=== PATIENT | male | born 1965 | race Caucasian/White ===

== ENCOUNTER 2024-04-21 16:38 | Emergency (ER) | payer BC, SELFPAY ==
[2024-04-21 16:40] VITALS: BP 129/67
--- NOTE | 2024-04-21 17:51 | ED.GENMED ---
History of Present Illness
<RUPERTO Ramírez - Last Filed: 04/22/24 18:36>
General
Chief Complaint: Suicidal Ideation
Source: patient and family
Exam Limitations: none and other
Time Seen by Provider: 04/21/24 17:31
Nursing documentation reviewed up to this point in time: agreed with
History of Present Illness
History of Present Illness:
58 yr old male sent by [facility] for placement for suidical ideation.
Patient presents awake alert brother at bedside. Patient has a history of anxiety depression and is in a partial hospitalization program with [facility]. He reports he missed 2 days of therapy and he feels bad that he did because he does refer
to therapy helps when he is there. He was previously hospitalized at [place] in February until March.
He was [facility] because he was suicidal this morning and as per crisis here in the ER he was sent for inpatient placement for depression and suicidal ideation. He does report that he did think of a plan and tells me he' would
use a knife to stab my stomach.'
Pt is cooperative.
Review of Systems
<RUPERTO Ramírez - Last Filed: 04/22/24 18:36>
Review of Systems
Allergies reviewed?: Yes
All Other Systems: ROS reviewed and negative except as documented in HPI and ROS
Constitutional: Reports no symptoms
Respiratory: Reports no symptoms
Cardiac: Reports no symptoms
ABD/GI: Reports no symptoms
: Reports no symptoms
Musculoskeletal: Reports no symptoms
Skin: Reports no symptoms
Neurological: Reports no symptoms
Psychiatric: Reports suicidal (admits to feeling suicidal this am ,denies now )
Phy Exam
<RUPERTO Ramírez - Last Filed: 04/22/24 18:36>
General Physical Exam
General Presentation: no apparent distress
General age: appears stated age
General Skin: warm and dry
General Habitus: normal
General Mental: alert
General Hydration: appears well hydrated
Neurological Exam
Neurological Exam: alert and oriented x3
Musculoskeletal Exam
Musculoskeletal Exam: full ROM
Skin Exam
Skin Exam: normal color and warm/dry
Psychiatric Exam
Psychiatric Exam: other (flat affect )
Course
<RUPERTO Ramírez - Last Filed: 04/22/24 18:36>
Orders/Labs/Results
Orders:
Orders
04/21/24 16:45
1:1 Observation - Suicide/ Violent Behavior As Directed
Crisis Consult Urgent
Reason for Consult: +SI
04/21/24 18:38
Acetaminophen Urgent
Alcohol Urgent
COVID-19 Antigen Urgent
Source: Nasal Swab
Complete Blood Count/With Diff Urgent
Comprehensive Metabolic Panel Urgent
Salicylate Urgent
Urine Drug Abuse Screen Urgent
Date Specimen was Collected: 04/21/24
Time Specimen was Collected: 18:32
Abnormal Lab Results
04/21/24
18:38
RBC 4.26 L 10^6/uL
(4.70-6.10)
Hgb 12.7 L g/dL
(13.0-18.0)
Hct 34.9 L %
(39.0-52.0)
Abs Immat Gran (auto) 0.1 H 10^3/uL
(0-0.05)
Immature Gran % 0.7 H %
(0-0.5)
BUN 30 H mg/dl
(9-20)
Glucose 124 H mg/dl
(70-99)
ALT 88 H U/L
(0-50)
Salicylates < 1.0 L mg/dl
(2.0-20.0)
Acetaminophen < 10 L ug/ml
(10-30)
04/21/24 18:38
04/21/24 18:38
Vital Signs
Initial and Last Documented VS:
Initial Vital Signs
Temp Pulse Resp BP Pulse Ox
98.3 F 79 16 129/67 98
04/21/24 16:40 04/21/24 16:40 04/21/24 16:40 04/21/24 16:40 04/21/24 16:40
Last Documented Vital Signs
Temp Pulse Resp BP Pulse Ox
99.0 F 78 16 126/74 98
04/21/24 18:28 04/22/24 07:21 04/22/24 07:21 04/22/24 07:21 04/22/24 07:21
<Ana Rosa Chen NP - Last Filed: 04/21/24 23:34>
Orders/Labs/Results
Orders:
Orders
04/21/24 16:45
1:1 Observation - Suicide/ Violent Behavior As Directed
Crisis Consult Urgent
Reason for Consult: +SI
04/21/24 18:38
Acetaminophen Urgent
Alcohol Urgent
COVID-19 Antigen Urgent
Source: Nasal Swab
Complete Blood Count/With Diff Urgent
Comprehensive Metabolic Panel Urgent
Salicylate Urgent
Urine Drug Abuse Screen Urgent
Date Specimen was Collected: 04/21/24
Time Specimen was Collected: 18:32
Abnormal Lab Results
04/21/24
18:38
RBC 4.26 L 10^6/uL
(4.70-6.10)
Hgb 12.7 L g/dL
(13.0-18.0)
Hct 34.9 L %
(39.0-52.0)
Abs Immat Gran (auto) 0.1 H 10^3/uL
(0-0.05)
Immature Gran % 0.7 H %
(0-0.5)
BUN 30 H mg/dl
(9-20)
Glucose 124 H mg/dl
(70-99)
ALT 88 H U/L
(0-50)
Salicylates < 1.0 L mg/dl
(2.0-20.0)
Acetaminophen < 10 L ug/ml
(10-30)
04/21/24 18:38
04/21/24 18:38
Vital Signs
Initial and Last Documented VS:
Initial Vital Signs
Temp Pulse Resp BP Pulse Ox
98.3 F 79 16 129/67 98
04/21/24 16:40 04/21/24 16:40 04/21/24 16:40 04/21/24 16:40 04/21/24 16:40
Last Documented Vital Signs
Temp Pulse Resp BP Pulse Ox
99.0 F 78 16 126/74 98
04/21/24 18:28 04/22/24 07:21 04/22/24 07:21 04/22/24 07:21 04/22/24 07:21
<RUPERTO Ramírez - Last Filed: 04/22/24 18:36>
MDM/Problems Addressed
MDM/Problems Addressed:
As documented patient is a 58-year-old male sent by [employer] for evaluation of suicidal ideation. Patient presents awake alert he does admit to feeling suicidal this morning he does not feel suicidal at this moment. He does however
express that he had a plan. Crisis aware telepsych to see patient. Patient cooperative and voluntary at this time.
<RUPERTO Ramírez - Last Filed: 04/22/24 18:36>
*Critical Care Note
Total Time (30-74mins, 75-104mins- exclusive of procedures): Not Applicable
<Ana Rosa Chen NP - Last Filed: 04/21/24 23:34>
Update Note
Update Note:
Patient evaluated by crisis and he is agreeable to inpatient treatment. Placement secured at [place]. Awaiting transportation. Clay Stanford is medically stable for inpatient psychiatric care.
ED Attending Note
<RUPERTO Ramírez - Last Filed: 04/22/24 18:36>
-
Portions of this chart may have been created with voice recognition software.� Occasional wrong word or��sound alike� substitutions may have occurred due to the inherent limitations of voice recognition software.
Discharge Plan
Departure
Patient Disposition: Psych Facility
Date of Disposition: 04/21/24
Time of Disposition: 23:32
Condition: Fair
Covid-19: Not Applicable
Discharge Problem:
Medical clearance for psychiatric admission
Instructions: Depression, Adult (DC), Suicide Prevention
Prescriptions:
No Action
trazodone 50 mg Tablet
50 mg PO HS PRN (Reason: sleep)
valacyclovir 1 gram Tablet
1,000 mg PO BID PRN (Reason: COLD SORE)
Patient Comments:
TAKE 2 PILLS TWICE DAILY FOR 5 DAYS NEEDED FOR COLD SORE
amlodipine 5 mg Tablet
5 mg PO DAILY
metformin 1,000 mg Tablet
1,000 mg PO BID
lisinopril 10 mg Tablet
10 mg PO DAILY
gabapentin 300 mg Capsule
300 mg PO TID
insulin lispro [Humalog U-100 Insulin] 100 unit/mL Solution
1 sliding scale dose SC DIRECTED
Patient Comments:
VIA INSULIN PUMP
ezetimibe 10 mg Tablet
10 mg PO DAILY
aripiprazole 20 mg Tablet
20 mg PO DAILY
rosuvastatin 40 mg Tablet
40 mg PO DAILY
fenofibrate nanocrystallized 145 mg Tablet
145 mg PO DAILY
nebivolol 5 mg Tablet
5 mg PO DAILY
icosapent ethyl [Vascepa] 1 gram Capsule
2 g PO BID
aspirin 81 mg Capsule
81 mg PO DAILY
Referrals:
UNKNOWN - PT NOT,INTERVIEWE [Family Provider] -
Interventions
Interventions:
*Risk Screen - Suicide Last Done: 04/21/24 16:40
*General Assessment Last Done: 04/21/24 18:27
*Neglect/Abuse Screening Last Done: 04/21/24 16:40
ED- Fall Risk Assessment Last Done: 04/22/24 09:19
*ED COVID-19 Vaccine History Last Done: 04/21/24 18:27
*Nursing Disposition Last Done: 04/22/24 09:19
ED-Psychological Assessment Last Done: 04/21/24 18:48
Discharge Date and Time
Discharge Date/Time: 04/22/24 09:25
Print Language: PITCA[place] ISLANDER
[2024-04-21 18:27] VITALS: BMI 26.5
[2024-04-21 18:28] VITALS: BP 116/63
[2024-04-21 18:51] LABS: % Basophils 0.6 % (0-2); % Eosinophils 2.7 % (0-6); % Immature Granulocytes 0.7 % (0-0.5); % Lymphocytes 30.4 % (20.5-51.1); % Monocytes 5.2 % (1.7-9.3); % Neutrophils 60.4 % (42.2-75.2); Absolute Basophils 0.1 10^3/uL (0-0.2); Absolute Eosinophils 0.3 10^3/uL (0-0.7); Absolute Immature Granulocytes 0.1 10^3/uL (0-0.05); Absolute Monocytes 0.5 10^3/uL (0.1-0.6); Absolute Neutrophils 5.9 10^3/uL (1.4-6.5); Hematocrit 34.9 % (39.0-52.0); Hemoglobin 12.7 g/dL (13.0-18.0); Mean Corp Hgb Conc. 36.4 g/dL (33.0-37.0); Mean Corpuscular Hgb 29.8 pg (27.0-31.0); Mean Corpuscular Volume 81.9 fL (80.0-94.0); Mean Platelet Volume 10.4 fL (7.4-10.4); Nucleated Red Blood Cells % 0 % (-); Platelet Count 210 10^3/uL (130-400); Red Blood Cell Count 4.26 10^6/uL (4.70-6.10); Red Cell Dist. Width 12.9 % (11.5-14.5); White Blood Cell Count 9.8 10^3/uL (4.8-10.8)
[2024-04-21 19:05] LABS: Amphetamines Negative (Negative); Barbiturates Negative (Negative); Benzodiazepines Negative (Negative); Buprenorphine Negative (Negative); Cocaine Negative (Negative); Marijuana Negative (Negative); Methadone Negative (Negative); Methamphetamines Negative (Negative); Opiates Negative (Negative); Phencyclidine Negative (Negative); Tricyclic Antidepressants Negative (Negative)
[2024-04-21 19:06] LABS: ALT (SGPT) 88 U/L (0-50); AST (SGOT) 34 U/L (17-59); Acetaminophen < 10 ug/ml (10-30); Albumin 4.6 g/dl (3.5-5.0); Alkaline Phosphatase 43 U/L (38-126); Blood Urea Nitrogen 30 mg/dl (9-20); Calcium 9.7 mg/dl (8.4-10.2); Carbon Dioxide 26 mmol/L (22-30); Chloride 100 mmol/L (98-107); Estimated Creatinine Clearance 73 ml/min; Glucose 124 mg/dl (70-99); Potassium 4.5 mmol/L (3.5-5.1); Salicylate < 1.0 mg/dl (2.0-20.0); Sodium 137 mmol/L (135-145); Total Bilirubin 0.6 mg/dl (0.2-1.3); Total Protein 6.6 g/dl (6.3-8.2); eGFR > 60.00
[2024-04-21 19:07] LABS: Alcohol None Detected
[2024-04-21 19:13] LABS: COVID-19 Antigen Negative (Negative)
[2024-04-21 22:22] VITALS: BP 107/60
[2024-04-22 07:21] VITALS: BP 126/74
== END 2024-04-22 09:25 ==
LOC: EMR 16:38
PROVIDERS: Nurse Practitioner; EMERGENCY PHYSICIAN Emergency Medicine
DX: F32.A Depression, unspecified (principal); F41.9 Anxiety disorder, unspecified; R45.851 Suicidal ideations
CPT/HCPCS: 99285; 80053; 80143; 80179; 80306; 82077; 85025; 87811

== ENCOUNTER 2024-06-01 16:25 | Inpatient (IN) | payer BC, SELFPAY ==
[2024-06-01 12:02] VITALS: BP 157/79
[2024-06-01 13:05] LABS: ALT (SGPT) 72 U/L (0-50); AST (SGOT) 35 U/L (17-59); Albumin 2.8 g/dl (3.5-5.0); Alkaline Phosphatase 99 U/L (38-126); Blood Urea Nitrogen 10 mg/dl (9-20); Calcium 7.4 mg/dl (8.4-10.2); Carbon Dioxide 18 mmol/L (22-30); Chloride 97 mmol/L (98-107); Glucose 276 mg/dl (70-99); Sodium 130 mmol/L (135-145); Total Bilirubin 0.6 mg/dl (0.2-1.3); Total Protein 6.4 g/dl (6.3-8.2); eGFR > 60.00
[2024-06-01 13:15] LABS: Lipase > 4000 U/L (23-300)
[2024-06-01 13:50] LABS: Hematocrit 38.1 % (39.0-52.0); Hemoglobin 13.9 g/dL (13.0-18.0); Mean Corpuscular Hgb 30.7 pg (27.0-31.0); Mean Corpuscular Volume 84.1 fL (80.0-94.0); Red Blood Cell Count 4.53 10^6/uL (4.70-6.10); White Blood Cell Count 12.6 10^3/uL (4.8-10.8)
[2024-06-01 13:51] LABS: Mean Corp Hgb Conc. 36.5 g/dL (33.0-37.0); Platelet Count 194 10^3/uL (130-400); Red Cell Dist. Width 13.7 % (11.5-14.5)
[2024-06-01 13:52] LABS: % Basophils 0.2 % (0-2); % Eosinophils 1.2 % (0-6); % Immature Granulocytes 0.6 % (0-0.5); % Lymphocytes 11.1 % (20.5-51.1); % Monocytes 6.2 % (1.7-9.3); % Neutrophils 80.7 % (42.2-75.2); Absolute Eosinophils 0.2 10^3/uL (0-0.7); Absolute Immature Granulocytes 0.1 10^3/uL (0-0.05); Absolute Lymphocytes 1.4 10^3/uL (1.2-3.4); Absolute Monocytes 0.8 10^3/uL (0.1-0.6); Absolute Neutrophils 10.1 10^3/uL (1.4-6.5); Nucleated Red Blood Cells % 0.2 % (-)
[2024-06-01] MEDS: MORPHINE SULFATE 4 MG IV ×2 (15:01→19:49)
[2024-06-01] MEDS: NSS 1000 IV ×3 (15:01→20:42)
--- NOTE | 2024-06-01 15:18 | ED.GENMED ---
History of Present Illness
General
Chief Complaint: Abdominal Pain
Source: patient
Exam Limitations: none
Time Seen by Provider: 06/01/24 13:49
Nursing documentation reviewed up to this point in time: agreed with
History of Present Illness
History of Present Illness:
58-year-old male past medical history of diabetes, hypertension hyperlipidemia and pancreatitis in the past presenting to the emergency department today with concerns of severe abdominal pain starting last night to the upper abdomen. Vomited this
morning as well. Has had similar symptoms in the past when he pancreatitis. Denies significant alcohol use
Review of Systems
Review of Systems
Allergies reviewed?: Yes
All Other Systems: ROS reviewed and negative except as documented in HPI and ROS
Phy Exam
Physical Exam
Physical Exam:
GENERAL: Alert , in no apparent distress
EYE: pupils equal and reactive
NECK: Supple, no significant adenopathy.
ENT: o/p clr, mmm.
CARDIAC: Regular rate and rhythm .
LUNGS: Clear breath sounds bilaterally, no acute respiratory distress, no wheezes/rales/rhonchi
ABDOMEN: Mild tenderness palpation to the epigastric region otherwise soft abdomen
NEUROLOGICAL: Alert and oriented, no focal neuro deficits
SKIN: Warm and dry, skin intact.
MUSCULOSKELETAL: No edema, well perfused.
PSYCH: Normal and appropriate interaction.
Course
Orders/Labs/Results
Orders:
Orders
06/01/24 12:05
EKG [Electrocardiogram (*1)] Urgent
Reason for Study: Abdominal Pain
EKG- Treatment ONCE
06/01/24 12:09
Complete Blood Count/With Diff Urgent
Comprehensive Metabolic Panel Urgent
Lipase Urgent
06/01/24 14:30
0.9% Sodium Chloride 1000 ml [Nss] 1,000 ml IV BOLUS
Morphine Sulfate 4 mg IV NOW STA
Abnormal Lab Results
06/01/24
12:09
WBC 12.6 H 10^3/uL
(4.8-10.8)
RBC 4.53 L 10^6/uL
(4.70-6.10)
Hct 38.1 L %
(39.0-52.0)
MPV 12.0 H fL
(7.4-10.4)
Abs Immat Gran (auto) 0.1 H 10^3/uL
(0-0.05)
Absolute Neuts (auto) 10.1 H 10^3/uL
(1.4-6.5)
Absolute Monos (auto) 0.8 H 10^3/uL
(0.1-0.6)
Immature Gran % 0.6 H %
(0-0.5)
Neutrophils % 80.7 H %
(42.2-75.2)
Lymphocytes % 11.1 L %
(20.5-51.1)
Sodium 130 L mmol/L
(135-145)
Chloride 97 L mmol/L
(98-107)
Carbon Dioxide 18 L mmol/L
(22-30)
Glucose 276 H mg/dl
(70-99)
Calcium 7.4 L mg/dl
(8.4-10.2)
ALT 72 H U/L
(0-50)
Albumin 2.8 L g/dl
(3.5-5.0)
Lipase > 4000 H* U/L
(23-300)
06/01/24 12:09
06/01/24 12:09
Vital Signs
Initial and Last Documented VS:
Initial Vital Signs
Temp Pulse Resp BP Pulse Ox
99.1 F 74 18 157/79 95
06/01/24 12:02 06/01/24 12:02 06/01/24 12:02 06/01/24 12:02 06/01/24 12:02
Last Documented Vital Signs
Temp Pulse Resp BP Pulse Ox
99.1 F 74 18 157/79 92
06/01/24 12:02 06/01/24 12:02 06/01/24 12:02 06/01/24 12:02 06/01/24 15:09
MDM/Problems Addressed
MDM/Problems Addressed:
58-year-old male presenting to the emergency department today with concerns of upper abdominal pain and vomiting since last night. Here he has vague discomfort to the upper abdomen. Lipase consistent with pancreatitis plan to admit for fluid
management and monitoring.
*Critical Care Note
Total Time (30-74mins, 75-104mins- exclusive of procedures): Not Applicable
ED Attending Note
-
Portions of this chart may have been created with voice recognition software.� Occasional wrong word or��sound alike� substitutions may have occurred due to the inherent limitations of voice recognition software.
Discharge Plan
Departure
Patient Disposition: Admit
Date of Disposition: 06/01/24
Time of Disposition: 15:20
Admit to: Med/Surg
Admit to doctor: Nicky
Presentation/result/management discussed w/ accepting MD/DO: Hospitalist
Patient with high blood pressure during this ER visit?: No
Condition: Good
Covid-19: Not Applicable
Discharge Problem:
Pancreatitis
Prescriptions:
No Action
trazodone 50 mg Tablet
50 mg PO HS PRN (Reason: sleep)
valacyclovir 1 gram Tablet
1,000 mg PO BID PRN (Reason: COLD SORE)
Patient Comments:
TAKE 2 PILLS TWICE DAILY FOR 5 DAYS NEEDED FOR COLD SORE
amlodipine 5 mg Tablet
5 mg PO DAILY
metformin 1,000 mg Tablet
1,000 mg PO BID
lisinopril 10 mg Tablet
10 mg PO DAILY
gabapentin 300 mg Capsule
300 mg PO TID
insulin lispro [Humalog U-100 Insulin] 100 unit/mL Solution
1 sliding scale dose SC DIRECTED
Patient Comments:
VIA INSULIN PUMP
ezetimibe 10 mg Tablet
10 mg PO DAILY
aripiprazole 20 mg Tablet
20 mg PO DAILY
rosuvastatin 40 mg Tablet
40 mg PO DAILY
fenofibrate nanocrystallized 145 mg Tablet
145 mg PO DAILY
nebivolol 5 mg Tablet
5 mg PO DAILY
icosapent ethyl [Vascepa] 1 gram Capsule
2 g PO BID
aspirin 81 mg Capsule
81 mg PO DAILY
Referrals:
Marin Turner MD [Family Provider] -
Interventions
Interventions:
*Risk Screen - Suicide Last Done: 06/01/24 12:02
*General Assessment Last Done: 06/01/24 12:02
*Neglect/Abuse Screening Last Done: 06/01/24 12:02
ED- Fall Risk Assessment Last Done: 06/01/24 15:11
*ED COVID-19 Vaccine History Last Done: 06/01/24 12:02
GG-Clqmle-Jsiekcxrks Assessment Last Done: 06/01/24 15:11
Discharge Date and Time
Print Language: UKRAINIAN
--- NOTE | 2024-06-01 15:32 | HPS.HSE ---
Family Physician
-
Family Physician: Marin Turner
Chief Complaint
-
upper abdominal pain
History of Present Illness
Patient is a 58-year-old male with past medical history significant for benign hypertension, hyperlipidemia, DM II, depression, anxiety and bipolar disorder who presented to [facility] ED for evaluation of severe abdominal pain in upper
abdomen starting last night. Patient states that when he went to bed the pain started and really has not had any relief since. He reports hx of pancreatitis. Denies any fever, chills, cough, shortness of breath, chest pain, nausea, vomiting,
constipation or diarrhea. He denies recent alcohol use.
Medical History
Past Medical History
Past Medical History: Reports Other
Additional Past Medical History:
benign hypertension
hyperlipidemia
DM II
depression
anxiety
bipolar disorder
Hx pancreatitis
Past Surgical History: Reports Other
Additional Past Surgical History:
wisdom teeth
Social History
Tobacco: Non-smoker
Alcohol: Occasional
Drug: None
Living: Alone
Employment: Employed
Family History
Family History: Not pertinent
Allergies / Home Medications
Allergies reflects when Allergies were last updated in [employer].
Home Medications with original date entered in [employer]
Allergy/Medication List:
Allergies
Allergy/AdvReac Type Severity Reaction Status Date / Time
No Known Allergies Allergy Verified 06/01/24 12:05
Home Medications
amlodipine 5 mg tablet 5 mg PO DAILY 04/21/24
aripiprazole 20 mg tablet 20 mg PO DAILY 04/21/24
aspirin 81 mg capsule 81 mg PO DAILY 04/21/24
ezetimibe 10 mg tablet 10 mg PO DAILY 04/21/24
gabapentin 300 mg capsule 300 mg PO TID 04/21/24
insulin lispro 100 unit/mL subcutaneous solution (Humalog U-100 Insulin) 1 sliding scale dose SC AC 04/21/24
lisinopril 10 mg tablet 10 mg PO DAILY 04/21/24
metformin 1,000 mg tablet 1,000 mg PO BID 04/21/24
rosuvastatin 40 mg tablet 40 mg PO DAILY 04/21/24
trazodone 50 mg tablet 50 mg PO HS PRN sleep 04/21/24
valacyclovir 1 gram tablet 2,000 mg PO BIDPRN PRN COLD SORE 04/21/24
fenofibrate nanocrystallized 145 mg tablet 145 mg PO DAILY 06/01/24
icosapent ethyl 1 gram capsule (Vascepa) 2 g PO BID 06/01/24
nebivolol 5 mg tablet 5 mg PO DAILY 06/01/24
sennosides 8.6 mg tablet (senna) 8.6 mg PO DAILY 06/01/24
Review of Systems
-
History Source: Patient
Constitutional: Reports No Symptoms
EENT: Reports No Symptoms
Respiratory: Reports No Symptoms
Cardiac: Reports No Symptoms
Abdomen/GI: Reports Abdominal Pain
: Reports No Symptoms
Musculoskeletal: Reports No Symptoms
Skin: Reports No Symptoms
Neurological: Reports No Symptoms
Endocrine: Reports No Symptoms
Hematologic/Lymphatic: Reports No Symptoms
Psych: Reports No Symptoms
Physical Exam
Vital Signs
Vital Signs
Temp Pulse Resp BP Pulse Ox
99.1 F 74 18 157/79 92
06/01/24 12:02 06/01/24 12:02 06/01/24 12:02 06/01/24 12:02 06/01/24 15:09
Physical Exam
General: Well Developed, Well Nourished, No Apparent Distress, Conversant and Pain
HEENT: NormoCephalic, Moist mucous membranes, Atraumatic, [place] Conjunctivae, Nose Appears Normal and Ears Appear Normal
Respiratory: Clear and Non Labored Respirations
Cardiac: S1/S2 and Regular Rhythm; No Murmur, Rub or Gallop
Breast: Deferred by me
GI: Soft, Non Distended, Normal Bowel Sounds and Tender; No Organomegaly
Rectal: Deferred by Provider
Genito-urinary: Deferred by me
Musculoskeletal: No Clubbing, No Cyanosis and No Edema
Skin: No Rash
Neuro: Awake, Alert, AO x 3 and Nonfocal/grossly intact
Psych: Calm and Intact Judgment/Insight
Laboratory Results
-
06/01/24 12:09
06/01/24 12:09
Laboratory Results
Total Bilirubin 0.6 mg/dl (0.2-1.3) 06/01/24 12:09
AST 35 U/L (17-59) 06/01/24 12:09
ALT 72 U/L (0-50) H 06/01/24 12:09
Alkaline Phosphatase 99 U/L (38-126) 06/01/24 12:09
Lipase > 4000 U/L (23-300) H* 06/01/24 12:09
Data Reviewed
-
Medical Tests (Nuc Med, Echo, EKG etc): Report Reviewed by me (EKG: NORMAL SINUS RHYTHM RIGHT BUNDLE BRANCH BLOCK POSSIBLE INFERIOR INFARCT , AGE UNDETERMINED)
Lab Data: Labs Reviewed by me (Lipase >4000, )
Impression/Plan
-
IMPRESSION/PLAN:
#acute pancreatitis unknown etiology
hx pancreatitis
Lipase 4000
EKG: NORMAL SINUS RHYTHM
RIGHT BUNDLE BRANCH BLOCK
POSSIBLE INFERIOR INFARCT , AGE UNDETERMINED
- Admit to med/surg
- Abdomen/Pelvis CT: pending
- IVF
- NPO
- supportive care
#benign hypertension
- continue amlodipine, lisinopril, and nebivolol
#hyperlipidemia
- continue aspirin, ezetimibe, fenofibrate, icosapent, and rosuvastatin
#DM II
- AccuCheck AC & HS
- SSI
- hold metformin
#depression
#anxiety
#bipolar disorder
- continue aripiprazole
Code status: full code
DVT prophylaxis: Lovenox sq
[2024-06-01 15:49] VITALS: BMI 29.3
[2024-06-01 16:00] VITALS: BP 142/72
--- NOTE | 2024-06-01 16:28 | PHANOTE ---
Med History Collection Note
Patient states Nataly (sister) helps with meds [phone] - she discussed which meds he was taking prior to [place] admission.
[phone] and bilingual case manager Colin Cee ([phone]) Left message with both to fax med list. Have not heard back at this time.
Med list confirmed based on list from sister.
[2024-06-01 17:01] VITALS: BP 163/78
[2024-06-01 17:18] VITALS: BMI 28.2
[2024-06-01] MEDS: LOVENOX 40 MG SC (17:21)
[2024-06-01] MEDS: TYLENOL 650 MG PO (17:21)
[2024-06-01 17:42] LABS: Glucose - Point of Care 338 mg/dl (70-99)
[2024-06-01] MEDS: NOVOLOG FLEXPEN-LOW RESISTANCE 4 UNITS SC (17:59)
--- NOTE | 2024-06-01 18:19 | W.PN.UPDATE ---
Addendum entered and electronically signed by Jarrod Saunders MD 06/03/24 15:36:
Addendum to note. Prior episode of pancreatitis in 2020 was from Hypertriglyceridemia as per GI not alcohol.
Original Note:
Update Note
Progress Note Update
This is an addendum to the H&P written by Shae Johnson on 06/01/2024. Patient seen examined independently with [facility]. Patient seen examined independently with BE[employer].
58-year-old male past medical history of pancreatitis from alcohol use, hypertension, diabetes, hypercholesterolemia, anxiety/depression/bipolar, presenting with acute onset of abdominal pain in the upper abdomen.
Patient was using an insulin pump but he was hospitalized at a psychiatric facility has not been using it since then.
Patient with acute pancreatitis unclear etiology does not drinking alcohol.
Labs show leukocytosis. Lipase greater than 4000. Check CT abdomen pelvis. Check lipid panel.
N.p.o., IV fluids. Zofran, Dilaudid as needed.
[2024-06-01] MEDS: NEURONTIN 300 MG PO (20:42)
[2024-06-01 23:15] VITALS: BP 137/78
[2024-06-02 00:06] LABS: Glucose - Point of Care 303 mg/dl (70-99)
[2024-06-02] MEDS: NOVOLOG FLEXPEN-LOW RESISTANCE 4 UNITS SC ×3 (00:12→13:19)
[2024-06-02] MEDS: TYLENOL 650 MG PO ×2 (00:12→21:08)
[2024-06-02] MEDS: NSS 1000 IV ×6 (00:17→22:15)
[2024-06-02] MEDS: DESYREL 50 MG PO (02:28)
[2024-06-02] MEDS: MORPHINE SULFATE 4 MG IV ×3 (03:09→18:30)
[2024-06-02 06:46] LABS: Glucose - Point of Care 315 mg/dl (70-99)
[2024-06-02 07:30] VITALS: BP 167/89
[2024-06-02 07:51] LABS: Hematocrit 35.3 % (39.0-52.0); Hemoglobin 13.7 g/dL (13.0-18.0); Mean Corp Hgb Conc. 38.8 g/dL (33.0-37.0); Mean Corpuscular Hgb 33.3 pg (27.0-31.0); Mean Corpuscular Volume 85.9 fL (80.0-94.0); Mean Platelet Volume 10.4 fL (7.4-10.4); Platelet Count 246 10^3/uL (130-400); Red Blood Cell Count 4.11 10^6/uL (4.70-6.10); Red Cell Dist. Width 14.2 % (11.5-14.5); White Blood Cell Count 16.9 10^3/uL (4.8-10.8)
[2024-06-02 08:14] LABS: ALT (SGPT) 49 U/L (0-50); AST (SGOT) 34 U/L (17-59); Albumin 2.9 g/dl (3.5-5.0); Alkaline Phosphatase 81 U/L (38-126); Amylase 392 U/L (30-110); Blood Urea Nitrogen 9 mg/dl (9-20); Calcium 6.4 mg/dl (8.4-10.2); Carbon Dioxide 16 mmol/L (22-30); Chloride 103 mmol/L (98-107); Estimated Creatinine Clearance 110 ml/min; Glucose 297 mg/dl (70-99); HDL Cholesterol 32 mg/dl; Lipase 2568 U/L (23-300); Sodium 131 mmol/L (135-145); Total Bilirubin 0.7 mg/dl (0.2-1.3); Total Cholesterol 287 mg/dl (50-199); Total Protein 5.3 g/dl (6.3-8.2); eGFR > 60.00
--- NOTE | 2024-06-02 08:21 | W.PN.HOSP.TC ---
Today's Communication/Plan
-
Abdominal MRI
Follow blood culture
Continue Zosyn for now
Keep n.p.o.
Insulin drip
Assessment / Plan
Assessment / Plan
Patient is a 58-year-old male who was brought from [facility] to ED following severe midgastric pain and fever. Patient denies any nausea or vomiting. He denies any URI or UTI symptoms. [place] feverish and had chills one day prior to
admission but did not take his temperature. Denies any trauma to the abdomen. Mentions last time he had an alcoholic drink was in [place]. Does not smoke. Does not have a history of gallstones. He was previously using an insulin pump.
Upon arrival in ED, his labs were significant for lipase>4000, WBC=12.6, mild hyponatremia, and highly elevated TG (2255). Also had low-grade fever.
Chronic conditions prior to admission:
Essential hypertension, hyperlipidemia, insulin-dependent DM II, depression, anxiety and bipolar disorder, pancreatitis due to alcohol use disorder (2019)
#Acute recurrent pancreatitis
- Likely in the setting of hyperTG
- Keep NPO
- Continue IVF
- Ondansetron, Tylenol, pain meds as needed
- Will replace abd/pelvis CT with abdominal MRI
- Trend lipase
- Monitor BMP
# SIRS POA
-Influenza A and COVID neg
-BC x2 sent-pending
-CXR: Hypoaerated lungs without consolidation
-U/A-pending
-procalcitonin elevated-started Zosyn 3.35 q6h
#Hypovolemic Hyponatremia
-Anticipate to improve following IV fluid therapy
-Trend sodium daily
# Hypocalcemia
-Calcium after correction for hypoalbuminemia is 6.9
-Calcium gluconate stat given
# Insulin-dependent diabetes type 2
-Metformin held
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
-Will start insulin drip to improve hyper TG
-Patient states he had an insulin pump prior to coming to the hospital-will contact his sister to see if she can bring it for him
# Essential hypertension
-Continue home amlodipine, lisinopril, metoprolol
# Hyperlipidemia
-Continue home Zetia, fenofibrate, rosuvastatin 40
-Continue aspirin 81
# Bipolar disorder
-Continue Abilify
# Anxiety/depression
-Continue home trazodone, Lexapro
DVT prophylaxis
Lovenox
Full code
Anticipated Discharge: 24 - 48 hours
Subjective/Interval History
-
Date of Service: June 02, 2024
Objective Data
-
Labs:
Laboratory Results
06/02/24
06:54
WBC 16.9 H
Hgb 13.7
Hct 35.3 L
Plt Count 246 D
Sodium 131 L
Potassium 4.0
Chloride 103
Carbon Dioxide 16 L
BUN 9
Creatinine 0.8
Glucose 297 H
Calcium 6.4 L*
Total Bilirubin 0.7
AST 34
ALT 49
Alkaline Phosphatase 81
Vital Signs:
Vital Signs
Temp Pulse Resp BP Pulse Ox
98 F 112 18 167/89 98
06/02/24 07:30 06/02/24 07:30 06/02/24 07:30 06/02/24 07:30 06/02/24 07:30
I&O
06/01/24 06/02/24 06/03/24
06:59 06:59 06:59
Intake Total 3000 / 3000
Balance 3000 / 3000
Review of Systems
-
History Source: Patient
All other systems: Reviewed and negative
Abdomen/GI: Reports Abdominal Pain
Physical Exam
-
General: Well Developed and No Apparent Distress
HEENT: Normocephalic, Atraumatic and Moist Mucous Membranes
Respiratory: Clear to Auscultation
Cardiac: Regular Rhythm and S1/S2; Negative Murmur, Rub or Gallop
GI: Soft, Nondistended, Normal Bowel Sounds and Tender (Mild midgastric tenderness)
Rectal: Deferred by Provider
Musculoskeletal: No Clubbing, No Cyanosis and No Edema
Skin: Warm and Dry
Neuro: Awake, Alert, Oriented and AO x 3
Psych: Calm
[2024-06-02] MEDS: ZETIA 10 MG PO (08:40)
[2024-06-02] MEDS: LOPRESSOR 50 MG PO ×2 (08:40→20:51)
[2024-06-02] MEDS: NEURONTIN 300 MG PO ×3 (08:41→21:07)
[2024-06-02] MEDS: NORVASC 5 MG PO (08:44)
[2024-06-02] MEDS: ABILIFY 20 MG PO (08:44)
[2024-06-02] MEDS: ZESTRIL 10 MG PO (08:44)
[2024-06-02] MEDS: SENOKOT 8.6 MG PO (08:44)
[2024-06-02] MEDS: TRICOR 145 MG PO (08:44)
[2024-06-02] MEDS: ASPIR LOW (ENTERIC COATED) 81 MG PO (08:44)
[2024-06-02] MEDS: CRESTOR 40 MG PO (08:45)
[2024-06-02] MEDS: NOVOLIN N vial 0.12 UNITS SC (08:48)
[2024-06-02 08:55] LABS: LDL Cholesterol, Calculated -196 mg/dl; Triglyceride 2255 mg/dl (10-149); Very Low Density Lipoprotein 451 mg/dl (0-30)
[2024-06-02 09:41] LABS: Glycohemoglobin (HgbA1c) 8.2 % (4.0-5.6)
[2024-06-02] MEDS: CALCIUM GLUCONATE 100 IV (09:42)
[2024-06-02 09:48] LABS: LDL Cholesterol, Direct 46 mg/dl
[2024-06-02 10:09] LABS: Vitamin D, 25-OH*** < 12.8 ng/mL (30-80)
[2024-06-02 10:42] LABS: Vitamin B12 442 pg/ml (239-931)
--- NOTE | 2024-06-02 10:48 | CM ---
Addendum entered by Liliana Butcher RN 06/02/24 16:34:
PADDY spoke with Maude programs assistant from [facility] . Plan to return to [facility] on discharge.
[facility]
Nursing Report
[phone]
Addendum entered by Liliana Butcher RN 06/02/24 15:24:
CM met with patient in room. Patient stated that he was at [facility] for about 4 weeks. Patient ultimately transitioned to [facility] treatment in [place]. Patient was planning to transition to [facility] in [place]
but presented to the emergency room with medical complaints.
Patient stated that he has a showcase trimmer Maude at [facility] that has been assisting with his transitions.
CM left message at [facility] to discuss discharge planning options.
Original Note:
CM received call from patient's [place] Deputy Sheriff/Investigator's showcase trimmer Maude [phone].
[2024-06-02 12:55] LABS: Glucose - Point of Care 322 mg/dl (70-99)
[2024-06-02] MEDS: DRISDOL (VITAMIN D2) 50000 UNITS PO (13:19)
[2024-06-02 13:47] LABS: COVID-19 Antigen Negative (Negative)
--- NOTE | 2024-06-02 13:50 | W.PN.UPDATE ---
Addendum entered and electronically signed by Johny Pichardo MD 06/02/24 15:38:
Spoke to patient's sister. As per her he was not taking medicines for several months before March. Sometime in April he was hospitalized. I do not see Tricor on his med list even though he was supposed to be on that. She thinks that he was
not on that at the [facility]. Likely reason for his hypertriglyceridemia if that is true.
He was also not allowed to use insulin from there. She is not sure if patient can have an insulin pump at [facility]
Updated regarding pancreatitis.
Patient had a fever and also procalcitonin elevated
Until MRI is back we will add Zosyn
time spent over 50 min
Original Note:
Update Note
Progress Note Update
I saw and evaluated the patient. I reviewed the resident�s note and agree with findings and plan as documented in the resident�s note except for change in documentation
58 y/o male with abdominal pain from [facility] behavioural health program at [place]. He was hospitalized at [facility] for inpatient psychiatric reasons and suicidal ideation. Today was supposed to be the last day at [facility] and patient is
supposed to go to [facility] in [place]
CVS: S1-S2 normal
Chest: CTA B/L
Abdomen: Soft, mild tenderness, Bowel sounds present
Extremities: No edema
# Abdominal pain with elevated lipase
Treat as acute pancreatitis
Cause for pancreatitis probably hyper triglyceridemia
N.p.o. with IV fluids
MRI of the abdomen with MRCP
Follow lipase
Start insulin drip to treat hypertriglyceridemia
# Fever
Check influenza and COVID serologies
Chest x-ray
Blood cultures
Urine analysis reflex to culture
# Znprodigckal-xtvjai-nhwapz fluids to hypertonic if sodium remains low
# Diabetes-hemoglobin A1c- 8.2
Hold metformin. Accu-Cheks and sliding scale coverage
Start insulin drip to treat hypertriglyceridemia
If blood sugars are lower than 200 we will add dextrose to the fluids
Patient was on insulin pump in the past need to look into that
# Hypertension-Continue amlodipine, lisinopril, metoprolol
# Hyperlipidemia-Continue Zetia fenofibrate and statin. Pt says he was taking them regularly.
# Bipolar disease-Continue Abilify, Trazodone, Lexapro
# Hypoalbuminemia
# Obesity per BMI criteria
# DVT prophylaxis-Lovenox
# Full code
D/W RN
Called mom she gave me the phone number for patient's sister who handles his medicines
Nataly Moralesdarian [phone] -called and left a message.
He has a daughter Maggie Mom doesn't have her number.
[2024-06-02 14:51] LABS: Glucose - Point of Care 299 mg/dl (70-99)
[2024-06-02] MEDS: NOVOLIN R INSULIN INFUSION 100 IV (14:53)
[2024-06-02 15:19] LABS: Procalcitonin 6.31 ng/ml (0.0-0.25)
--- NOTE | 2024-06-02 15:26 | PTCARENOTE ---
insulin gtt infusing, accuchecks hourly. notify when blood glucose 200. Resident notified of procal results
[2024-06-02 15:41] VITALS: BP 182/90
--- NOTE | 2024-06-02 15:46 | CON.GI ---
Addendum entered and electronically signed by Malika Graf MD 06/02/24 19:10:
I saw and examined the patient.
The CABLE SPLICER ASSISTANT's note was reviewed and I agree with the note.
Comment: This is a 58-year-old male who has past medical history of hypertension, hyperlipidemia, diabetes, prior pancreatitis in 2020 due to hypertriglyceridemia, anxiety, depression, bipolar disorder with prior history of suicidal ideation and was
an inpatient and then was at [facility] who presented to ER yesterday with symptoms of epigastric abdominal pain. He was noted to have lipase elevation and significant elevation of triglycerides normal LFTs. he also had
elevated glucose levels with elevated hemoglobin A1c and has been started on insulin drip and IV hydration. Apparently he used to be on insulin pump and was not using the insulin at the [facility]. He was also febrile on admission
with a fever of 103 and is undergoing sepsis workup and also was started on Zosyn. Flu tested negative. Blood cultures negative to date. He denies recent use of alcohol and also denies prior history of excessive use.
Assessment and plan acute recurrent pancreatitis most likely related to hypertriglyceridemia was related to this in the past also. He has been started on IV fluids and also insulin drip and if not improving may need plasmapheresis. No other recent
change in medications so doubt it is medication induced and no prior use of GLP-1 agonist. He is scheduled for an MRI. continue to keep him n.p.o. and also pain control. Will also add PPI. He is being transferred for higher level of care since he
is also tachycardic. He did have a fever on admission also tested negative for flu. chest x-ray negative for pneumonia. blood cultures negative to date. May also need COVID testing and UA pending. Fever and leukocytosis may be reactive from
pancreatitis.
Original Note:
Consultation
-
Date/Time Consultation Requested: 06/02/24 0800
Date/Time Consultation Performed: 06/02/24 1545
Requesting Provider: Johny Crane MD
Performing Provider: RUPERTO Boyce, Malika Graf MD
Reason for Consultation: abdominal pain
Medical History
Chief Complaint / HPI
Chief Complaint: abdominal pain
History of Present Illness:
Pt is a 58yo with hx HTN, hyperlipidemia, depression/anxiety, bipolar disorder, DM type II, prior pancreatitis at [facility] 2020 due to hypertriglyceridemia with onset of abdominal pain. On admission noted with WBC 12,600, hbg 13.9, Na 130, glucose
276, bili 0.6, AST 35, ALT 72, alk pos 99, albumin 2.8 and lipase >4000, TG 2255, procal 6.31. Pt was recently treated for inpatient psych for suicidal ideation and was to be moving facility today. Per Dr. Pichardo discussion with family pt not
taking medication for several months before March and hospitalized in April and may have not have been on Tricor. Pt denies any other new medications but was unsure with recent mental health admission. Pt also noted with fever 103 on
admission with blood cx pending.
He admits to abdominal pain started day prior to admission 02/14 prompting ER visit. He also admits to some increased GERD and dry mouth with bloating and constipation for last 2 day. He denies nausea, vomiting, diarrhea, or rectal bleeding.
hx social ETOH. no recent ETOH with psych admission and prior social ETOH.
Past Medical History
Past Medical History: HTN, Hypercholesterolemia, NIDDM, Psychiatric (depression/anxiety/ bipolar disorder ) and Other (pancreatitis )
Past Surgical History: Other (wisdom teeth )
Social History
Tobacco: Non-Smoker
Alcohol: Occasional (in past none recently )
Drug: None
Living: Alone (but was at current psych facility )
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
Family History
Family History: Other (? mother with GI issues )
Allergies / Home Medications
Allergy/AdvReac Type Severity Reaction Status Date / Time
No Known Allergies Allergy Verified 06/01/24 12:05
�Medication �Instructions �Recorded
amlodipine 5 mg tablet 5 mg PO DAILY 04/21/24
aripiprazole 20 mg tablet 20 mg PO DAILY 04/21/24
aspirin 81 mg capsule 81 mg PO DAILY 04/21/24
ezetimibe 10 mg tablet 10 mg PO DAILY 04/21/24
gabapentin 300 mg capsule 300 mg PO TID 04/21/24
insulin lispro 100 unit/mL 1 sliding scale dose SC AC 04/21/24
subcutaneous solution (Humalog
U-100 Insulin)
lisinopril 10 mg tablet 10 mg PO DAILY 04/21/24
metformin 1,000 mg tablet 1,000 mg PO BID 04/21/24
trazodone 50 mg tablet 50 mg PO HSPRN PRN sleep 04/21/24
valacyclovir 1 gram tablet 2,000 mg PO BIDPRN PRN COLD SORE 04/21/24
escitalopram oxalate 10 mg tablet 10 mg PO DAILY 06/01/24
(Lexapro)
escitalopram oxalate 5 mg tablet 5 mg PO DAILY 06/01/24
(Lexapro)
metoprolol tartrate 50 mg tablet 50 mg PO BID 06/01/24
(Lopressor)
sennosides 8.6 mg tablet (senna) 8.6 mg PO DAILY 06/01/24
Review of Systems
-
History Source: Patient
Constitutional: Reports Fever and Fatigue
EENT: Reports No Symptoms
Respiratory: Reports No Symptoms
Cardiac: Reports No Symptoms
Abdomen/GI: Reports Abdominal Pain and Constipated
: Reports No Symptoms
Musculoskeletal: Reports No Symptoms
Skin: Reports No Symptoms
Neurological: Reports Weakness
Endocrine: Reports No Symptoms
Hematologic/Lymphatic: Reports No Symptoms
Vital Signs
Temp Pulse Resp BP Pulse Ox
98 F 113 17 182/90 98
06/02/24 15:41 06/02/24 15:41 06/02/24 15:41 06/02/24 15:41 06/02/24 15:41
Physical Exam
Exam
General: Well Developed, Well Nourished and No Apparent Distress
HEENT: Normocephalic, Anicteric and Other (dry mucous membranes )
Respiratory: Clear
Cardiac: Other (tachy )
GI: Soft, Non Tender and Non Distended
Musculoskeletal: No Clubbing and No Cyanosis
Skin: Warm and Dry
Neuro: Awake, Alert, Oriented and Other (some forgetfulness with history )
Psych: Calm
Results
WBC 16.9 10^3/uL (4.8-10.8) H 06/02/24 06:54
Hgb 13.7 g/dL (13.0-18.0) 06/02/24 06:54
Hct 35.3 % (39.0-52.0) L 06/02/24 06:54
MCV 85.9 fL (80.0-94.0) 06/02/24 06:54
Plt Count 246 10^3/uL (130-400) D 06/02/24 06:54
Absolute Neuts (auto) 10.1 10^3/uL (1.4-6.5) H 06/01/24 12:09
Sodium 131 mmol/L (135-145) L 06/02/24 06:54
Potassium 4.0 mmol/L (3.5-5.1) 06/02/24 06:54
Chloride 103 mmol/L (98-107) 06/02/24 06:54
Carbon Dioxide 16 mmol/L (22-30) L 06/02/24 06:54
BUN 9 mg/dl (9-20) 06/02/24 06:54
Creatinine 0.8 mg/dL (0.7-1.3) 06/02/24 06:54
Calcium 6.4 mg/dl (8.4-10.2) L* 06/02/24 06:54
Total Bilirubin 0.7 mg/dl (0.2-1.3) 06/02/24 06:54
AST 34 U/L (17-59) 06/02/24 06:54
ALT 49 U/L (0-50) 06/02/24 06:54
Alkaline Phosphatase 81 U/L (38-126) 06/02/24 06:54
Amylase 392 U/L (30-110) H 06/02/24 06:54
Lipase 2568 U/L (23-300) H* 06/02/24 06:54
Diagnostic Image Results:
none
Prior GI Procedures:
EGD: none
Colonoscopy: 2 years ago recalls as normal
Assessment / Plan
-
Pt is a 58yo with hx HTN, hyperlipidemia, depression/anxiety, bipolar disorder, DM type II, prior pancreatitis at [facility] 2020 due to hypertriglyceridemia with onset of abdominal pain. On admission noted with WBC 12,600, hbg 13.9, Na 130, glucose
276, bili 0.6, AST 35, ALT 72, alk pos 99, albumin 2.8 and lipase >4000, TG 2255, procal 6.31. Pt was recently treated for inpatient psych for suicidal ideation and was to be moving facility today. Per Dr. Pichardo discussion with family pt not
taking medication for several months before March and hospitalized in April and may have not have been on Tricor. Pt denies any other new medications but was unsure with recent mental health admission. Pt also noted with fever 103 on
admission with blood cx pending.
-pancreatitis
-hypertriglyceridemia
-fever/leukocytosis
-tachycardia in exam
-constipation with concern for developing ileus
-hx pancreatitis from hypertriglyceridemia 2020 at [facility]
-recent suicidal ideation with psych admission
-elevated procal
other med problems:
-bipolar
-DM II
PLAN:
etiology of pancreatitis related to hypertriglyceridemia, no recentl ETOH, pt unsure of medication changes -- pt may have been off tricor
cont IVF 250ml/hr
insulin gtt-- management of hypertriglyceridemia per medical team
add CRP
NPO
pain control
await fever work up
reviewed with Dr. Crane for transfer to IMU with tachycardia, fever on admission, constipation with ? developing ileus
-
-
-
Thank you for consultation and allowing me to participate in the patient's care. Please call the collection systems modeler GI physician during the after hours with any questions or concerns.
[2024-06-02] MEDS: ZOSYN 50 IV ×2 (15:53→22:15)
[2024-06-02 15:58] LABS: Glucose - Point of Care 295 mg/dl (70-99)
[2024-06-02 17:05] LABS: Glucose - Point of Care 327 mg/dl (70-99)
[2024-06-02 17:38] VITALS: BP 150/89
[2024-06-02 17:59] LABS: C-Reactive Protein > 270.00 mg/L (0.0-10.00)
[2024-06-02 18:16] LABS: Glucose - Point of Care 285 mg/dl (70-99)
[2024-06-02] MEDS: LOVENOX 40 MG SC (18:30)
--- NOTE | 2024-06-02 18:57 | PTCARENOTE ---
report called to IMU. pain medication, see JUN. pt had loose BM. CB in reach. new IV left hand
[2024-06-02 19:04] LABS: Glucose - Point of Care 281 mg/dl (70-99)
[2024-06-02 20:18] LABS: Glucose - Point of Care 272 mg/dl (70-99)
[2024-06-02 20:52] VITALS: BP 152/72
[2024-06-02] MEDS: NSS (PRESERVATIVE FREE) 10 ML IV (20:53)
[2024-06-02] MEDS: PROTONIX IV 40 MG IV (20:53)
[2024-06-02] MEDS: NOVOLOG FLEXPEN-LOW RESISTANCE SC (21:10)
[2024-06-02 21:13] LABS: Glucose - Point of Care 270 mg/dl (70-99)
--- NOTE | 2024-06-02 21:57 | PTCARENOTE ---
Addendum entered by Shy Bowers RN 06/02/24 22:29:
temp recheck 101.5. pt received Po tylenol at 21:08. ice packs placed under pt keren pits and back of neck. pt only in use of one top sheet no blankets.
Original Note:
pt received from 1 acute RN. Pt on insulin gtt with q1hr glucose checks. gtt maintained at 2units/hr, 2ml/ hr per order. see intervention. Pt with 100.5 oral temp. Pt given ordered Tylenol for fever. Pt sinus tach on monitor HR 110. Assessment as
documented. Call light in reach.
[2024-06-02 22:00] VITALS: BP 137/80
[2024-06-02 22:22] LABS: Glucose - Point of Care 267 mg/dl (70-99)
[2024-06-02 23:17] LABS: Glucose - Point of Care 268 mg/dl (70-99)
[2024-06-03] VITALS (13 sets, daily range): BP systolic 127–167; BP diastolic 65–80; PULSE 102; O2SAT 92
[2024-06-03 00:20] LABS: Glucose - Point of Care 246 mg/dl (70-99)
[2024-06-03] MEDS: NOVOLOG FLEXPEN-LOW RESISTANCE SC (00:31)
[2024-06-03 01:26] LABS: Glucose - Point of Care 221 mg/dl (70-99)
[2024-06-03 02:20] LABS: Glucose - Point of Care 243 mg/dl (70-99)
[2024-06-03] MEDS: NSS 1000 IV ×3 (02:30→21:33)
[2024-06-03 03:28] LABS: Glucose - Point of Care 218 mg/dl (70-99)
[2024-06-03] MEDS: ZOSYN 50 IV ×4 (03:34→20:38)
[2024-06-03 04:18] LABS: Glucose - Point of Care 205 mg/dl (70-99)
[2024-06-03 05:06] LABS: ALT (SGPT) 36 U/L (0-50); AST (SGOT) 29 U/L (17-59); Albumin 2.5 g/dl (3.5-5.0); Alkaline Phosphatase 72 U/L (38-126); Blood Urea Nitrogen 15 mg/dl (9-20); Calcium 6.2 mg/dl (8.4-10.2); Carbon Dioxide 18 mmol/L (22-30); Chloride 109 mmol/L (98-107); Direct Bilirubin 0.4 mg/dl (0.0-0.4); Estimated Creatinine Clearance 88 ml/min; Glucose 194 mg/dl (70-99); Lipase 1015 U/L (23-300); Potassium 3.8 mmol/L (3.5-5.1); Sodium 133 mmol/L (135-145); Total Bilirubin 0.7 mg/dl (0.2-1.3); Total Protein 4.8 g/dl (6.3-8.2); eGFR > 60.00
[2024-06-03 05:22] LABS: Glucose - Point of Care 179 mg/dl (70-99)
[2024-06-03] MEDS: D5/0.9% SODIUM CHLORIDE 1000 IV (05:29)
--- NOTE | 2024-06-03 05:30 | PTCARENOTE ---
Pt glucose 179 at 5 am glucose check. per order RENT CONTROL OFFICE MANAGER made aware.
[2024-06-03 06:00] LABS: White Blood Cell Count 11.7 10^3/uL (4.8-10.8)
[2024-06-03 06:01] LABS: Hematocrit 27.1 % (39.0-52.0); Hemoglobin 9.4 g/dL (13.0-18.0)
[2024-06-03 06:02] LABS: Mean Corp Hgb Conc. 34.7 g/dL (33.0-37.0); Mean Corpuscular Hgb 30.4 pg (27.0-31.0); Mean Corpuscular Volume 87.7 fL (80.0-94.0); Mean Platelet Volume 11.5 fL (7.4-10.4); Platelet Count 207 10^3/uL (130-400); Red Cell Dist. Width 14.7 % (11.5-14.5)
[2024-06-03 06:23] LABS: Glucose - Point of Care 235 mg/dl (70-99)
[2024-06-03] MEDS: CALCIUM GLUCONATE 100 IV (06:41)
[2024-06-03 07:17] LABS: Glucose - Point of Care 251 mg/dl (70-99)
[2024-06-03] MEDS: NSS IV (07:37)
--- NOTE | 2024-06-03 07:39 | W.PN.HOSP.TC ---
Addendum entered and electronically signed by Johny Pichardo MD 06/03/24 13:35:
58-year-old male with pancreatitis
MRI/MRCP-Severe acute interstitial edematous pancreatitis. No overt fluid collection or pancreatic necrosis.Reactive duodenitis and peripancreatic lymph nodes.Hepatosplenomegaly.Small bilateral pleural effusions with associated compressive
subsegmental atelectasis.
CVS: S1-S2 normal
Chest: CTA B/L
Abdomen: Soft, mild tenderness, Bowel sounds present
Extremities: No edema
# Acute pancreatitis
Cause for pancreatitis - hyper triglyceridemia
N.p.o. with IV fluids
MRI of the abdomen with MRCP as above
Follow lipase- trending down
Continue insulin drip -fluids with dextrose at a lower rate if needed to avoid hypoglycemia
# Fever
Influenza and COVID screen negative
Possible reason for fevers pancreatitis-Zosyn added yesterday
Wait for cultures
Chest x-ray unremarkable for infection
Urine analysis reflex to culture
# Hyponatremia-improving
# Diabetes-hemoglobin A1c- 8.2
Hold metformin. Accu-Cheks and sliding scale coverage
Started insulin drip to treat hypertriglyceridemia
If blood sugars are lower than 180 we will run dextrose to the fluids
Patient's insulin pump is very expensive for him to maintain therefore we will change to Lantus and NovoLog insulin once he is off of the insulin drip.
Patient will need to learn how to do insulin
# Hypertension-Continue amlodipine, lisinopril, metoprolol
# Hyperlipidemia-Continue Zetia fenofibrate and statin. Pt says he was taking them regularly even though it was not part of his med rec.most likely he was not on that for past several months except for a month or so in between March and April.
# Bipolar disease-Continue Abilify, Trazodone, Lexapro
# Hypoalbuminemia
# Obesity per BMI criteria
# DVT prophylaxis-Lovenox
# Full code
Detail discussion with patient's sister at bedside regarding his conditions. She brought his pump in however patient states that it is too expensive for him to afford therefore we will change to basal bolus at discharge.
Wait for triglycerides to come down. Follow lipase also continue IV fluids, insulin drip
Case management regarding placement. [facility] will accept patient back at discharge
Psychiatric evaluation requested per case management
D/W RN
Total time spent over 50 minutes
Original Note:
Today's Communication/Plan
-
MRI today
ADAT
Continue fluid therapy with normal saline and D5
Continue insulin drip until TG less than 500
Trend lipase and TG
UA
Continue Zosyn
Assessment / Plan
Assessment / Plan
Patient is a 58-year-old male who was brought from [facility] to ED following severe midgastric pain and fever. Patient denies any nausea or vomiting. He denies any URI or UTI symptoms. [place] feverish and had chills one day prior to
admission but did not take his temperature. Denies any trauma to the abdomen. Mentions last time he had an alcoholic drink was in [place]. Does not smoke. Does not have a history of gallstones. He was previously using an insulin pump.
Upon arrival in ED, his labs were significant for lipase>4000, WBC=12.6, mild hyponatremia, and highly elevated TG (2255). Also had low-grade fever.
Chronic conditions prior to admission:
Essential hypertension, hyperlipidemia, insulin-dependent DM II, depression, anxiety and bipolar disorder, pancreatitis due to alcohol use disorder (2019)
#Acute recurrent pancreatitis
- Likely in the setting of hyperTG
- Can ADAT
- Continue IVF with N/S @100 and D5 @50 ml/h
- Ondansetron, Tylenol, pain meds as needed
- Will replace Abd/pelvis CT with abdominal MRI
- Trend lipase and TG
- Monitor BMP
- GI consulted-plan for plasmapheresis today
# SIRS POA
-1 episode of fever last night
-White count downtrending
-Influenza A and COVID neg
-BC x2 sent-first set negative after 24 hours, second set pending
-CXR: Hypoaerated lungs without consolidation
-U/A-sent today
-procalcitonin elevated-continue Zosyn 3.35 q6h
#Hypovolemic Hyponatremia
-Anticipate to improve following IV fluid therapy
-Trend sodium daily
# Hypocalcemia
-Calcium after correction for hypoalbuminemia is 6.9
-Calcium gluconate stat given
# Insulin-dependent diabetes type 2
-Metformin held
-Patient received 12 units NPH stat real estate investment analyst
-Started insulin drip to improve hyper TG-continue until TG less than 500
-DM DAIRY STORE MANAGER consulted
-Patient states he had an insulin pump prior to coming to the hospital-will contact his sister
# Essential hypertension
-Continue home amlodipine, lisinopril, metoprolol
# Hyperlipidemia
-Continue home Zetia, fenofibrate, rosuvastatin 40
-Continue aspirin 81
# Bipolar disorder
-Continue Abilify
-Consulted psych
# Anxiety/depression
-Continue home trazodone, Lexapro
DVT prophylaxis
Lovenox
Full code
Anticipated Discharge: 24 - 48 hours
Subjective/Interval History
-
Date of Service: June 03, 2024
Objective Data
-
Labs:
Laboratory Results
06/03/24
04:15
WBC 11.7 H
Hgb 9.4 L D
Hct 27.1 L
Plt Count 207
Sodium 133 L
Potassium 3.8
Chloride 109 H
Carbon Dioxide 18 L
BUN 15
Creatinine 1.0
Glucose 194 H
Calcium 6.2 L*
Total Bilirubin 0.7
AST 29
ALT 36
Alkaline Phosphatase 72
Vital Signs:
Vital Signs
Temp Pulse Resp BP Pulse Ox
98.5 F 91 27 146/80 93
06/03/24 03:21 06/03/24 07:15 06/03/24 07:15 06/03/24 06:00 06/03/24 07:15
I&O
06/02/24 06/03/24 06/04/24
06:59 06:59 06:59
Intake Total 3000 / 3000
Balance 3000 / 3000
Review of Systems
-
History Source: Patient
All other systems: Reviewed and negative
Abdomen/GI: Reports Abdominal Pain (Improved)
Physical Exam
-
General: Well Developed
HEENT: Normocephalic, Atraumatic and Moist Mucous Membranes
Respiratory: Wheezes (Scattered wheezes heard )
Cardiac: Regular Rhythm and S1/S2; Negative Murmur, Rub or Gallop
GI: Soft, Nondistended, Normal Bowel Sounds and Tender (Mild midgastric tenderness)
Rectal: Deferred by Provider
Musculoskeletal: No Clubbing, No Cyanosis and No Edema
Skin: Warm and Dry
Neuro: Awake, Alert, Oriented and AO x 3
Psych: Calm
[2024-06-03 08:15] LABS: Glucose - Point of Care 282 mg/dl (70-99)
[2024-06-03] MEDS: LOPRESSOR 50 MG PO ×2 (08:28→20:38)
[2024-06-03] MEDS: VITAMIN D3 (cholecalciferol) 50 MCG PO (08:28)
[2024-06-03] MEDS: ASPIR LOW (ENTERIC COATED) 81 MG PO (08:28)
[2024-06-03] MEDS: CRESTOR 40 MG PO (08:28)
[2024-06-03] MEDS: TRICOR 145 MG PO (08:29)
[2024-06-03] MEDS: NEURONTIN 300 MG PO ×3 (08:29→20:38)
[2024-06-03] MEDS: ZETIA 10 MG PO (08:29)
[2024-06-03] MEDS: ZESTRIL 10 MG PO (08:29)
[2024-06-03] MEDS: NORVASC 5 MG PO (08:29)
[2024-06-03] MEDS: SENOKOT PO (08:29)
[2024-06-03] MEDS: PROTONIX IV 40 MG IV (08:30)
[2024-06-03] MEDS: NSS (PRESERVATIVE FREE) 10 ML IV (08:30)
--- NOTE | 2024-06-03 08:39 | PTCARENOTE ---
Patient received from student support counselor. Patient resting comfortably in bed. AAO, VSS. No events noted overnight. No complaints of pain at this time. Currently on an insulin gtt @ 2 units/hr with D5NS through the IV. Calcium was low and received
repletion. Scheduled for an MRI today. Call crenshaw in reach.
[2024-06-03] MEDS: ABILIFY 20 MG PO (09:04)
[2024-06-03 09:15] LABS: Glucose - Point of Care 217 mg/dl (70-99)
--- NOTE | 2024-06-03 10:07 | W.PN.GI.CBS2 ---
Today's Communication / Plan
-
Started clear liquids
Continue current medications
Assessment / Plan
-
Pt is a 58yo with hx HTN, hyperlipidemia, depression/anxiety, bipolar disorder, DM type II, prior pancreatitis at [facility] 2020 due to hypertriglyceridemia with onset of abdominal pain. On admission noted with WBC 12,600, hbg 13.9, Na 130, glucose
276, bili 0.6, AST 35, ALT 72, alk pos 99, albumin 2.8 and lipase >4000, TG 2255, procal 6.31. Pt was recently treated for inpatient psych for suicidal ideation and was to be moving facility today. Per Dr. Pichardo discussion with family pt not
taking medication for several months before March and hospitalized in April and may have not have been on Tricor. Pt denies any other new medications but was unsure with recent mental health admission. Pt also noted with fever 103 on
admission with blood cx pending.
-pancreatitis
-hypertriglyceridemia
-fever/leukocytosis
-tachycardia in exam
-constipation with concern for developing ileus
-hx pancreatitis from hypertriglyceridemia 2020 at [facility]
-recent suicidal ideation with psych admission
-elevated procal
other med problems:
-bipolar
-DM II
PLAN:
etiology of pancreatitis related to hypertriglyceridemia, no recentl ETOH, pt unsure of medication changes -- pt may have been off tricor
insulin gtt-- management of hypertriglyceridemia per medical team
Levels from today are pending and if not improving may need to consider plasmapheresis
His pancreatitis symptoms are improving his pain is improved and his lipase is trending down also.
Continue IV fluids and pain control
Heart rate is improving and blood pressure stable
He did spike a fever last night but none since then has been on Zosyn since admission, cultures so far are negative. fever is most likely reactive from pancreatitis if workup is negative for infection could DC antibiotics
MRI still pending
Continue PPI
Reinforced importance of medication compliance and may need endocrine follow-up closely as outpatient
started clears
-
Subjective
Subjective
Date of Service: June 03, 2024
Pain is improved. He did spike a fever last night but none since. He did have a bowel movement today morning no melena was reported. Lipase is trending down, TG level Pending
Objective
Data Reviewed
Laboratory Data:
Laboratory Results
06/03/24 04:15
06/03/24 04:15
Laboratory Results
Total Bilirubin 0.7 mg/dl (0.2-1.3) 06/03/24 04:15
AST 29 U/L (17-59) 06/03/24 04:15
ALT 36 U/L (0-50) 06/03/24 04:15
Alkaline Phosphatase 72 U/L (38-126) 06/03/24 04:15
Amylase 392 U/L (30-110) H 06/02/24 06:54
Lipase 1015 U/L (23-300) H* 06/03/24 04:15
Vital Signs and I&O:
Vital Signs
Temp Pulse Resp BP Pulse Ox
97.6 F 99 27 149/72 93
06/03/24 07:09 06/03/24 08:28 06/03/24 07:15 06/03/24 08:28 06/03/24 07:15
I&O
06/02/24 06/03/24 06/04/24
06:59 06:59 06:59
Intake Total 3000 / 3000
Balance 3000 / 3000
Physical Exam
Physical Exam
Cardiology: Normal Sinus Rhythm
Pulmonary: Clear
GI: Soft, Distended (Mildly distended), Tender (Tender in the epigastric area but improved from yesterday) and Normal Bowel Sounds
[2024-06-03 10:15] LABS: Glucose - Point of Care 230 mg/dl (70-99)
[2024-06-03 11:19] LABS: Glucose - Point of Care 236 mg/dl (70-99)
[2024-06-03] MEDS: ATIVAN 0.5 MG PO (11:39)
--- NOTE | 2024-06-03 11:56 | CM ---
Patient from [facility] with Hx bipolar disorder with Dx acute pancreatitis. Receiving IVF, IV Abx. Psych Consult pending. DM Educator Consult ordered.
Met with patient and his sister Nataly;
the patient has resided alone in a 1 story house with 3 LAUREN.
He was independent in ADLs and ambulation.
Patient has a CPAP machine that he doesn't use.
No prior VN or SNF.
PCP - [facility]
Pharmacy - [facility]
The patient & sister state that the patient completed [facility] program and they were in the process of helping him gain approval for [facility] program in [place] with housing.
Spoke with Maude, Bulk Filler, [facility] ( [phone], fax [phone]); the patient needs to return to [facility] at discharge and they will get him over to [facility] with housing. She will
let the patient & sister know that. They will be able to provide transport to [facility]. The phone for report to Maude ph [phone], fax [phone]. For discharge on the weekend call nurse at [phone]. They prefer patient be seen
by Psych.
Plan return to [facility] [address] with [facility] transporting, when medically ready.
[2024-06-03 13:11] LABS: Urine Albumin 3+ (Neg - Trace); Urine Bilirubin Negative (Negative); Urine Character Clear (Clear); Urine Color Yellow; Urine Glucose 3+ (Negative); Urine Ketone 1+ (Negative); Urine Leukocyte Negative (Negative); Urine Nitrite Negative (Negative); Urine Occult Blood 3+ (Negative); Urine Specific Gravity 1.015 (<1.030); Urine Urobilinogen Negative (Neg - 1+)
[2024-06-03 13:12] LABS: Glucose - Point of Care 224 mg/dl (70-99)
[2024-06-03 13:21] LABS: Triglycerides 2140 mg/dl (10-149)
[2024-06-03 13:53] LABS: Vitamin B12 582 pg/ml (239-931)
[2024-06-03 13:57] LABS: Iron 30 ug/dl (49-181); Percent Saturation 15 % (20-50); Total Iron Binding Capacity 192 ug/dl (261-462)
[2024-06-03 14:08] LABS: Glucose - Point of Care 222 mg/dl (70-99)
[2024-06-03 14:17] LABS: Urine Squamous Cell 0-2 /LPF (Few)
[2024-06-03 14:18] LABS: Urine Amorphous Seen
[2024-06-03 14:19] LABS: Urine Uric Acid Crystals Seen
[2024-06-03 14:20] LABS: Urine Red Blood Cell 0-2 /HPF (0-2); Urine White Cell 0-2 /HPF (0-5)
--- NOTE | 2024-06-03 14:31 | CON.MD ---
Consultation - Medical
-
patient seen chart reviewed. the patient is a 58 year old male who is well known to me as i have rx him in php at [facility]. he has long hx of depression. he is here for pancreatitis. he was hospitalized in late 2023 and discharged to a residential
treatment program he was dc after 21 days as insurance declined to pay. he developed severe abd pain and was admitted as stated for pancreatitis. HE DOES NOT DRINK. this is not alcoholic pancreatitis. he remains depressed although at this point
he is not suicidal. he had been on lexapro in addition to abilify 20 mg daily gabapentin 300/3 and trazodone 50 mg q hs. he does feels these have helped him. i presume lexapro stopped bc of very prolonged qtc which i explained to him.sleep is fair.
appetite is returning. he does not enjoy much. money is an issue for him and he does not have many hobbies. work is a major stressor. his boss is very difficult and the man who broke up his marriage as he sees it works with him ' i see him every
day'.
past psych hx patient has been hosp several timesin the past...5x between 2018 and and twice between 2022 and 2024. he has been in the php at [facility] and they also had managed his meds. had recently been in [facility] rx patient does
not have hx psychosis
medical hx pancreatitis hld htg htn dm he had an insulin pump in the past but not since spate of psych hospitalizations. ecg markedly abnormal w prolonged qtc
fh mother with severe depression possibly bipolar
substance abuse none
social one daughter he is close to two sibs who are supportive has a job which is stressful see above
mse alert ox3 cooperative pleasant speech and thought process nl depressed affect constricted no si aver intelligence no psychosis insight judgment ok
dx major depression recurrent severe
plan for now continue w current medications. this is a high dose of abilify for someone w /o hx of psychosis but he feels it helps. given low sodium and high qtc would avoid lexapro. when he is recovered from pancreatitis w nl sodium would
reconsider antidep. he is to return to [facility] at [facility]. i will speak to the prescriber there who knows him as well. will follow
[2024-06-03 15:16] LABS: Glucose - Point of Care 339 mg/dl (70-99)
[2024-06-03 16:23] LABS: Glucose - Point of Care 200 mg/dl (70-99)
[2024-06-03 17:14] LABS: Glucose - Point of Care 323 mg/dl (70-99)
[2024-06-03] MEDS: LOVENOX 40 MG SC (17:16)
[2024-06-03 18:14] LABS: Glucose - Point of Care 299 mg/dl (70-99)
[2024-06-03 19:23] LABS: Glucose - Point of Care 190 mg/dl (70-99)
[2024-06-03 20:30] LABS: Glucose - Point of Care 312 mg/dl (70-99)
[2024-06-03 21:14] LABS: Glucose - Point of Care 312 mg/dl (70-99)
[2024-06-03 22:14] LABS: Glucose - Point of Care 265 mg/dl (70-99)
--- NOTE | 2024-06-03 22:30 | PTCARENOTE ---
Assumed care of patient from previous RN. Patient is Aox3 with flat affect. Patient on insulin gtt currently at 3 units, titrating per order. NS running at 100 ml/hr. Checking blood glucose Q1. NSR on monitor. RA sating at 92%. Assessment and vital
signs as documented. Call crenshaw in reach.
[2024-06-03 23:14] LABS: Glucose - Point of Care 228 mg/dl (70-99)
[2024-06-04] VITALS (9 sets, daily range): BP systolic 141–175; BP diastolic 68–85
[2024-06-04 00:13] LABS: Glucose - Point of Care 223 mg/dl (70-99)
[2024-06-04] MEDS: NOVOLIN R INSULIN INFUSION 100 IV (00:59)
[2024-06-04 01:09] LABS: Glucose - Point of Care 196 mg/dl (70-99)
[2024-06-04 02:08] LABS: Glucose - Point of Care 193 mg/dl (70-99)
[2024-06-04 03:09] LABS: Glucose - Point of Care 173 mg/dl (70-99)
[2024-06-04] MEDS: D5/0.9% SODIUM CHLORIDE 1000 IV (03:11)
[2024-06-04] MEDS: ZOSYN 50 IV (04:07)
[2024-06-04 04:08] LABS: Glucose - Point of Care 171 mg/dl (70-99)
[2024-06-04 04:50] LABS: Blood Urea Nitrogen 8 mg/dl (9-20); Calcium 7.3 mg/dl (8.4-10.2); Carbon Dioxide 16 mmol/L (22-30); Chloride 111 mmol/L (98-107); Estimated Creatinine Clearance 98 ml/min; Glucose 177 mg/dl (70-99); Lipase 664 U/L (23-300); Potassium 3.3 mmol/L (3.5-5.1); Sodium 135 mmol/L (135-145); eGFR > 60.00
[2024-06-04 04:59] LABS: Red Blood Cell Count 3.09 10^6/uL (4.70-6.10); White Blood Cell Count 8.3 10^3/uL (4.8-10.8)
[2024-06-04 05:00] LABS: Hemoglobin 8.1 g/dL (13.0-18.0)
[2024-06-04 05:01] LABS: Hematocrit 22.5 % (39.0-52.0); Mean Corpuscular Hgb 30.6 pg (27.0-31.0); Mean Corpuscular Volume 84.9 fL (80.0-94.0); Platelet Count 211 10^3/uL (130-400)
[2024-06-04 05:09] LABS: Triglycerides 1354 mg/dl (10-149)
[2024-06-04 05:12] LABS: Glucose - Point of Care 185 mg/dl (70-99)
[2024-06-04 06:07] LABS: Glucose - Point of Care 182 mg/dl (70-99)
[2024-06-04 07:20] LABS: Glucose - Point of Care 173 mg/dl (70-99)
--- NOTE | 2024-06-04 07:35 | W.PN.HOSP.TC ---
Addendum entered and electronically signed by Johny Pichardo MD 06/04/24 16:20:
I saw and evaluated the patient. I reviewed the resident�s note and agree with findings and plan as documented in the resident�s note.
Seen earlier today. Late documentation
Patient still was having abdominal pain
Had a bowel movement today
Lipase and triglycerides improving
Continue insulin drip
Fluids with dextrose to be only utilized if blood sugars are less than 180. Stop it if blood sugars are more than 200
Sliding scale also added
Agree with stopping Zosyn
Continue with clear liquids as patient still has abdominal pain
D/W RN
Time spent over 50 minutes
Original Note:
Today's Communication/Plan
-
Continue insulin drip
Keep on clear liquids for now
Will advance diet as tolerated if abdominal pain diminishes
Repeat hemoglobin later in the day
Dextrose as needed if BG less than 180
Discontinue Zosyn
Pain management as needed
Assessment / Plan
Assessment / Plan
Patient is a 58-year-old male who was brought from [facility] to ED following severe midgastric pain and fever. Patient denies any nausea or vomiting. He denies any URI or UTI symptoms. [place] feverish and had chills one day prior to
admission but did not take his temperature. Denies any trauma to the abdomen. Mentions last time he had an alcoholic drink was in [place]. Does not smoke. Does not have a history of gallstones. He was previously using an insulin pump.
Upon arrival in ED, his labs were significant for lipase>4000, WBC=12.6, mild hyponatremia, and highly elevated TG (2255). Also had low-grade fever.
Chronic conditions prior to admission:
Essential hypertension, hyperlipidemia, insulin-dependent DM II, depression, anxiety and bipolar disorder, pancreatitis due to alcohol use disorder (2019)
#Acute recurrent pancreatitis
- Likely in the setting of hyperTG
- Keep on clear liquids for now-will advance as tolerated
- Continue IVF with N/S @100- D5 @50 ml/h as needed
- Ondansetron, Tylenol, Toradol, opioids as needed
- Abdominal MRI done-severe peripancreatic fluid but no abscess/necrosis
- Continue to trend lipase and TG-downtrending
- Continue to monitor BMP
- GI consulted-appreciate input
- Drop in hemoglobin-will check hemoglobin later in the day
# SIRS POA
-Afebrile during the past 24 hours
-White count normal
-Influenza A and COVID neg
-BC x2 sent-first and second set negative to date
-CXR: Hypoaerated lungs without consolidation
-U/A-sent today-does not suggest UTI
-Discontinue Zosyn 3.35 q6
#Hypovolemic Hyponatremia
-Resolved
-Anticipate to improve following IV fluid therapy
-Follow BMP
# Hypocalcemia
-Calcium uptrending
-Calcium gluconate stat given early a.m.
# Hypokalemia
-Repleted
# Insulin-dependent diabetes type 2
-Metformin held
-Continue insulin drip to improve hyper TG-continue until TG less than 500
-DM TRAINING GENERALIST consulted-appreciate input
# Essential hypertension
-Continue home amlodipine, lisinopril, metoprolol
# Hyperlipidemia
-Continue home Zetia, fenofibrate, rosuvastatin 40
-Continue Aspirin 81
# Bipolar disorder
-Continue Abilify
-Consulted psych-appreciate input
# Anxiety/depression
-Continue home trazodone, Lexapro
DVT prophylaxis
Lovenox
Full code
Anticipated Discharge: 24 - 48 hours
Subjective/Interval History
-
Date of Service: June 04, 2024
Objective Data
-
Labs:
Laboratory Results
06/04/24
04:06
WBC 8.3
Hgb 8.1 L
Hct 22.5 L
Plt Count 211
Sodium 135
Potassium 3.3 L
Chloride 111 H
Carbon Dioxide 16 L
BUN 8 L
Creatinine 0.9
Glucose 177 H
Calcium 7.3 L
Vital Signs:
Vital Signs
Temp Pulse Resp BP Pulse Ox
98.9 F 100 30 144/72 93
06/04/24 04:53 06/04/24 05:00 06/04/24 05:00 06/04/24 02:00 06/04/24 05:00
I&O
06/03/24 06/04/24 06/05/24
06:59 06:59 06:59
Intake Total 1979 / 1979
Output Total 300 / 300
Balance 1680 / 1680
Review of Systems
-
History Source: Patient
All other systems: Reviewed and negative
Abdomen/GI: Reports Abdominal Pain (6 out of 10)
Physical Exam
-
General: Well Developed
HEENT: Normocephalic, Atraumatic and Moist Mucous Membranes
Respiratory: Clear to Auscultation
Cardiac: Regular Rhythm and S1/S2; Negative Murmur, Rub or Gallop
GI: Soft, Normal Bowel Sounds, Tender (Mild midgastric tenderness) and Distended
Rectal: Deferred by Provider
Musculoskeletal: No Clubbing, No Cyanosis and No Edema
Skin: Warm and Dry
Neuro: Awake, Alert, Oriented and AO x 3
Psych: Calm
[2024-06-04 08:14] LABS: Glucose - Point of Care 192 mg/dl (70-99)
[2024-06-04] MEDS: ZESTRIL 10 MG PO (08:31)
[2024-06-04] MEDS: NEURONTIN 300 MG PO ×3 (08:31→20:24)
[2024-06-04] MEDS: CRESTOR 40 MG PO (08:31)
[2024-06-04] MEDS: PROTONIX IV 40 MG IV (08:32)
[2024-06-04] MEDS: LOPRESSOR 50 MG PO ×2 (08:32→20:24)
[2024-06-04] MEDS: TRICOR 145 MG PO (08:32)
[2024-06-04] MEDS: SENOKOT PO (08:32)
[2024-06-04] MEDS: NSS (PRESERVATIVE FREE) 10 ML IV (08:32)
[2024-06-04] MEDS: NORVASC 5 MG PO (08:32)
[2024-06-04] MEDS: ABILIFY 20 MG PO (08:32)
[2024-06-04] MEDS: ZETIA 10 MG PO (08:32)
[2024-06-04] MEDS: VITAMIN D3 (cholecalciferol) 50 MCG PO (08:32)
[2024-06-04] MEDS: ASPIR LOW (ENTERIC COATED) 81 MG PO (08:33)
--- NOTE | 2024-06-04 08:38 | PN.DE.MGMTRT ---
Insulin Management
- -
06/04/2024: Diabetes Management Consult.
58 year old male admitted for evaluation of severe abdominal pain in upper abdomen due to acute pancreatitis
PMH: HTN, HLD, Depression, Anxiety, Bipolar disorder-recently admitted inpatient, T2DM, and prior pancreatitis at [place] 2020 due to hypertriglyceridemia. On admission noted for a lipase >4000 and TG of 2255, started on an insulin infusion for
management of hypertriglyceridemia. A1C 8.2%, Cr 0.9, eGFR >60.
Pt awake, alert, oriented, resting in bed, offers no complaints, able to discuss diabetes care plan[facility].
States he has working glucose monitor, Accuchek with enough supplies at home. Was using an insulin pump un until April 21 when he was hospitalized.
Pt and sister- Nataly have expressed interest in switching to an oral regimen or SQ insulin via MDI and stop using his insulin pump. Family is requesting this be done as soon as he is ready to transition off the drip.
Current glucose range 171 to 250, requiring 1-3 units of insulin/hr. Triglycerides level has improved from 2140 to 1354, goal<500.
Cont insulin infusion until TG <500. Will treat with D5 IVF if glucose <180, otherwise, NS IVF for glucose >200.
When Pt is medically stable to transition off drip, Consider Lantus 12 units 2 hrs before turning insulin drip off.
Can start combination regimen of bsal insulin and oral meds: Lantus 12 units @ HS, Glipizide 5mg BID and Metformin 1000mg BID.
Will follow up on Friday if patients remains in the hospital.
Diabetes History
- -
Type of Diabetes: 2 requiring insulin
Pre-Admission Diabetes Regimen
06/04/24
04:06
Creatinine 0.9
Lab Results
Hemoglobin A1c 8.2 % (4.0-5.6) H 06/02/24 06:54
Insulin Pump Settings
IP Diabetes Regimen
06/03/24 06/03/24 06/03/24
09:03 10:03 11:06
Glucose
POC Glucose 217 H 230 H 236 H
06/03/24 06/03/24 06/03/24
13:00 13:57 15:02
Glucose
POC Glucose 224 H 222 H 339 H
06/03/24 06/03/24 06/03/24
16:11 17:02 18:03
Glucose
POC Glucose 200 H 323 H 299 H
06/03/24 06/03/24 06/03/24
19:10 20:18 21:02
Glucose
POC Glucose 190 H 312 H 312 H
06/03/24 06/03/24 06/03/24
22:03 23:01 23:57
Glucose
POC Glucose 265 H 228 H 223 H
06/04/24 06/04/24 06/04/24
00:58 01:57 02:57
Glucose
POC Glucose 196 H 193 H 173 H
06/04/24 06/04/24 06/04/24
03:56 04:06 05:00
Glucose 177 H
POC Glucose 171 H 185 H
06/04/24 06/04/24 06/04/24
05:55 07:05 08:03
Glucose
POC Glucose 182 H 173 H 192 H
Meal type: Lunch
Patient Education
[2024-06-04 09:17] LABS: Glucose - Point of Care 250 mg/dl (70-99)
[2024-06-04 10:17] LABS: Glucose - Point of Care 281 mg/dl (70-99)
[2024-06-04] MEDS: KCL ELIXIR 40 MEQ PO (10:28)
[2024-06-04] MEDS: NSS IV (11:15)
[2024-06-04] MEDS: TYLENOL 650 MG PO (11:27)
[2024-06-04 11:31] LABS: Glucose - Point of Care 277 mg/dl (70-99)
[2024-06-04 11:34] LABS: Magnesium 1.7 mg/dl (1.6-2.3); Phosphorus 2.1 mg/dl (2.5-4.5)
[2024-06-04 12:21] LABS: Glucose - Point of Care 259 mg/dl (70-99)
[2024-06-04 13:16] LABS: Glucose - Point of Care 329 mg/dl (70-99)
--- NOTE | 2024-06-04 13:45 | W.PN.UPDATE ---
Update Note
Progress Note Update
patient seen chart reviewed. discussed with nursing mr zavala seems s/w better re pain. still depressed with anxiety particularly about paying hospital bills since he has spent so much time in hospitals and is on disability. continue to talk w him
about exploring disability when he is well but first things first he needs to recover from pancreatitis, then work on resolving his depression. hopefully he can eventually return to [facility] where he is known and comfortable. for now would not
change psych medications. i do feel he should be on less abilify but since he feels it has helped will leave it for now ( i worry it contributes to his being sluggish but that could also just be his illness and even when he is well he is not a very
energetic person....but then again i have only known him when he is depressed). i will pass on my thoughts to the prescriber in the [facility] should he return to that program. psych will continue to follow
--- NOTE | 2024-06-04 14:11 | PTCARENOTE ---
Patient AAOx3. C/o bloating and some abdominal pain. Messaged MD for PRN medicine for moderate pain, awaiting orders. Patient with fever 100.4, tylenol given with relief. Tolerating CLD. Insulin gtt running per protocol with Q1H blood sugars. IV
fluids running per protocol orders. Will continue to closely monitor.
[2024-06-04 14:28] LABS: Glucose - Point of Care 287 mg/dl (70-99)
[2024-06-04] MEDS: TORADOL 15 MG IV (15:31)
[2024-06-04 15:40] LABS: Glucose - Point of Care 257 mg/dl (70-99)
[2024-06-04 15:57] LABS: Hemoglobin 10.4 g/dL (13.0-18.0)
--- NOTE | 2024-06-04 16:01 | W.PN.GI.CBS2 ---
Today's Communication / Plan
-
continue insulin drip until TG < 500
continue supportive care
Assessment / Plan
-
Pt is a 58yo with hx HTN, hyperlipidemia, depression/anxiety, bipolar disorder, DM type II, prior pancreatitis at [place] 2020 due to hypertriglyceridemia with onset of abdominal pain. On admission noted with WBC 12,600, hbg 13.9, Na 130, glucose
276, bili 0.6, AST 35, ALT 72, alk pos 99, albumin 2.8 and lipase >4000, TG 2255, procal 6.31. Pt was recently treated for inpatient psych for suicidal ideation and was to be moving facility today. Per Dr. Pichardo discussion with family pt not
taking medication for several months before March and hospitalized in April and may have not have been on Tricor. Pt denies any other new medications but was unsure with recent mental health admission. Pt also noted with fever 103 on
admission with blood cx pending.
-pancreatitis
-hypertriglyceridemia
-fever/leukocytosis
-tachycardia in exam
-constipation with concern for developing ileus
-hx pancreatitis from hypertriglyceridemia 2020 at [place]
-recent suicidal ideation with psych admission
-elevated procal
other med problems:
-bipolar
-DM II
MRI abd 06/03
IMPRESSION:
Severe acute interstitial edematous pancreatitis. No overt fluid collection or pancreatic necrosis.
Reactive duodenitis and peripancreatic lymph nodes.
Hepatosplenomegaly.
PLAN:
etiology of pancreatitis related to hypertriglyceridemia, no recent ETOH, pt unsure of medication changes -- pt may have been off tricor
Continue insulin drip until TG<500 . Medical Management of triglyceridemia as per medical team.
Clear liquid diet. Advance to low-fat diet as tolerated if abdominal symptoms are better tomorrow
Clinically feeling better. Continue supportive care as per medical team.
No further fever spikes. Previous spike likely reactive. Okay to DC antibiotic
Reinforced importance of medication compliance and may need endocrine follow-up closely as outpatient
No further recommendation at this point. will s/o. call us back if any questions
-
Total Time Spent with Patient (in minutes): 35
Subjective
Subjective
Date of Service: June 04, 2024
Feeling better. Tolerating clear liquid diet
Objective
Data Reviewed
Laboratory Data:
Laboratory Results
06/04/24 15:30
06/04/24 04:06
Laboratory Results
Phosphorus 2.1 mg/dl (2.5-4.5) L 06/04/24 04:06
Magnesium 1.7 mg/dl (1.6-2.3) 06/04/24 04:06
Total Bilirubin 0.7 mg/dl (0.2-1.3) 06/03/24 04:15
AST 29 U/L (17-59) 06/03/24 04:15
ALT 36 U/L (0-50) 06/03/24 04:15
Alkaline Phosphatase 72 U/L (38-126) 06/03/24 04:15
Amylase 392 U/L (30-110) H 06/02/24 06:54
Lipase 664 U/L (23-300) H 06/04/24 04:06
Vital Signs and I&O:
Vital Signs
Temp Pulse Resp BP Pulse Ox
97.4 F 88 31 156/73 91
06/04/24 14:38 06/04/24 14:00 06/04/24 14:00 06/04/24 14:00 06/04/24 14:00
I&O
06/03/24 06/04/24 06/05/24
06:59 06:59 06:59
Intake Total 1979 / 1979
Output Total 300 / 300
Balance 1680 / 1680
Physical Exam
Physical Exam
GI: Soft (Mildly distended. Mild epigastric tenderness on deep palpation)
[2024-06-04 16:17] LABS: Glucose - Point of Care 244 mg/dl (70-99)
[2024-06-04] MEDS: NSS 1000 IV (16:43)
[2024-06-04] MEDS: LOVENOX 40 MG SC (17:52)
[2024-06-04 18:14] LABS: Glucose - Point of Care 218 mg/dl (70-99)
[2024-06-04] MEDS: NOVOLOG FLEXPEN-LOW RESISTANCE 2 UNITS SC (18:40)
[2024-06-04 19:20] LABS: Glucose - Point of Care 233 mg/dl (70-99)
[2024-06-04 20:16] LABS: Glucose - Point of Care 255 mg/dl (70-99)
[2024-06-04 21:17] LABS: Glucose - Point of Care 251 mg/dl (70-99)
[2024-06-04] MEDS: TORADOL 10 MG IV (21:58)
[2024-06-04 22:05] LABS: Glucose - Point of Care 252 mg/dl (70-99)
[2024-06-04 23:08] LABS: Glucose - Point of Care 221 mg/dl (70-99)
[2024-06-05] VITALS (13 sets, daily range): BP systolic 146–178; BP diastolic 74–95; BMI 28.2
[2024-06-05 00:11] LABS: Glucose - Point of Care 174 mg/dl (70-99)
[2024-06-05 01:04] LABS: Glucose - Point of Care 193 mg/dl (70-99)
[2024-06-05 02:08] LABS: Glucose - Point of Care 196 mg/dl (70-99)
[2024-06-05 03:06] LABS: Glucose - Point of Care 189 mg/dl (70-99)
[2024-06-05 04:08] LABS: Glucose - Point of Care 179 mg/dl (70-99)
[2024-06-05] MEDS: TYLENOL 650 MG PO ×2 (04:10→20:30)
[2024-06-05 04:51] LABS: Blood Urea Nitrogen 4 mg/dl (9-20); Calcium 8.2 mg/dl (8.4-10.2); Carbon Dioxide 18 mmol/L (22-30); Chloride 109 mmol/L (98-107); Estimated Creatinine Clearance 98 ml/min; Glucose 179 mg/dl (70-99); Potassium 3.4 mmol/L (3.5-5.1); Sodium 135 mmol/L (135-145); eGFR > 60.00
[2024-06-05 05:09] LABS: Triglycerides 1255 mg/dl (10-149)
[2024-06-05] MEDS: TORADOL 10 MG IV ×3 (05:10→21:13)
[2024-06-05 05:17] LABS: Glucose - Point of Care 188 mg/dl (70-99)
[2024-06-05 05:27] LABS: Mean Platelet Volume 11.2 fL (7.4-10.4); Platelet Count 237 10^3/uL (130-400); Red Blood Cell Count 3.08 10^6/uL (4.70-6.10); Red Cell Dist. Width 15.2 % (11.5-14.5); White Blood Cell Count 9.5 10^3/uL (4.8-10.8)
[2024-06-05 05:28] LABS: Hematocrit 25.7 % (39.0-52.0); Hemoglobin 9.3 g/dL (13.0-18.0); Mean Corp Hgb Conc. 36.2 g/dL (33.0-37.0); Mean Corpuscular Hgb 30.3 pg (27.0-31.0); Mean Corpuscular Volume 83.7 fL (80.0-94.0)
[2024-06-05 06:14] LABS: Glucose - Point of Care 176 mg/dl (70-99)
[2024-06-05 07:28] LABS: Glucose - Point of Care 163 mg/dl (70-99)
[2024-06-05] MEDS: SENOKOT PO (08:25)
[2024-06-05] MEDS: ZETIA 10 MG PO (08:25)
[2024-06-05] MEDS: ABILIFY 20 MG PO (08:26)
[2024-06-05] MEDS: CRESTOR 40 MG PO (08:26)
[2024-06-05] MEDS: TRICOR 145 MG PO (08:26)
[2024-06-05] MEDS: NEURONTIN 300 MG PO ×3 (08:27→21:06)
[2024-06-05] MEDS: ASPIR LOW (ENTERIC COATED) 81 MG PO (08:27)
[2024-06-05] MEDS: LOPRESSOR 50 MG PO ×2 (08:27→20:30)
[2024-06-05] MEDS: NORVASC 5 MG PO (08:28)
[2024-06-05] MEDS: VITAMIN D3 (cholecalciferol) 50 MCG PO (08:28)
[2024-06-05] MEDS: ZESTRIL 10 MG PO (08:29)
[2024-06-05] MEDS: NSS (PRESERVATIVE FREE) 10 ML IV (08:30)
[2024-06-05] MEDS: NOVOLOG FLEXPEN-LOW RESISTANCE 1 UNITS SC ×2 (08:30→17:09)
[2024-06-05] MEDS: PROTONIX IV 40 MG IV (08:30)
[2024-06-05 08:34] LABS: Glucose - Point of Care 172 mg/dl (70-99)
[2024-06-05 09:15] LABS: Glucose - Point of Care 185 mg/dl (70-99)
--- NOTE | 2024-06-05 10:10 | W.PN.UPDATE ---
Update Note
Progress Note Update
Patient states he is still quite uncomfortable particularly regarding his abdominal pain, wonder about his [facility] prognosis. He has dysphoria but mood is relatively stable. Denies hopelessness or suicidal thoughts.
He is on a quite high dose of Abilify, discussed it with him and will decrease to 10 mg.
Supportive intervention given.
Will F/U.
[2024-06-05 10:14] LABS: Glucose - Point of Care 168 mg/dl (70-99)
[2024-06-05 10:41] LABS: Lipase 567 U/L (23-300)
[2024-06-05 11:17] LABS: Glucose - Point of Care 189 mg/dl (70-99)
[2024-06-05] MEDS: KCL 40 MEQ PO (11:43)
[2024-06-05 12:24] LABS: Glucose - Point of Care 216 mg/dl (70-99)
[2024-06-05] MEDS: NOVOLOG FLEXPEN-LOW RESISTANCE 2 UNITS SC (12:33)
--- NOTE | 2024-06-05 12:39 | W.PN.HOSP.TC ---
Today's Communication/Plan
-
Encourage out of bed and ambulate
Encourage incentive spirometry
X-ray of the abdomen to rule out ileus
Added on magnesium and phosphorus
Clear liquid diet until pain improves
Continue insulin drip
Can change Accu-Cheks to every 2 hours as long as no hypoglycemia
Assessment / Plan
Assessment / Plan
58 y/o male with abdominal pain from [facility] health program at [place]. He was hospitalized at [facility] for inpatient psychiatric reasons and suicidal ideation. Today was supposed to be the last day at [facility] and patient is
supposed to go to [facility] in [place]
CVS: S1-S2 normal
Chest: CTA B/L
Abdomen: Soft, mild tenderness, Bowel sounds present
Extremities: No edema
Patient still has some Abdominal pain today
MRI/MRCP-severe acute interstitial edematous pancreatitis. No fluid collection or necrosis. Reactive duodenitis with peripancreatic lymph nodes. Hepatosplenomegaly. Small bilateral pleural effusions with compressive segmental atelectasis
# Acute pancreatitis secondary to hypertriglyceridemia
History of prior pancreatitis secondary to hyper triglyceridemia treated at [facility] in 2020
Continue clear liquids, patient still has abdominal pain therefore will not advance now
MRI of the abdomen with MRCP
Follow lipase
Continue insulin drip to treat hypertriglyceridemia-until triglycerides are less than 500
Check x-ray of the abdomen to rule out ileus
# Fever/SIRS
Infectious disease workup negative, COVID and flu serologies negative, chest x-ray and urinalysis negative
Cultures are negative
Zosyn was started and stopped
# Hyponatremia-resolved
# Diabetes-hemoglobin A1c- 8.2
Hold metformin. Accu-Cheks and sliding scale coverage
Continue insulin drip to treat hypertriglyceridemia
If blood sugars are lower than 180 we will add dextrose to the fluids
Patient cannot have insulin pump when he goes back to [facility]. They can do long-acting and short acting insulin.
# Hypertension-Continue amlodipine, lisinopril, metoprolol
# Hyperlipidemia-Continue Zetia ,fenofibrate and statin. He was off of fenofibrate at the psych facility
# Bipolar disease-Continue Abilify, Trazodone, Lexapro. Dose of Abilify decreased per psych
# Hypoalbuminemia
# Obesity per BMI criteria
# DVT prophylaxis-Lovenox
# Full code
D/W RN at bedside
Sister Nataly Oliveira [phone] - called and updated.
time more than 50 min
Anticipated Discharge: > 48 hours
Subjective/Interval History
-
Date of Service: June 05, 2024
Objective Data
-
Labs:
Laboratory Results
06/05/24
04:03
WBC 9.5
Hgb 9.3 L
Hct 25.7 L
Plt Count 237
Sodium 135
Potassium 3.4 L
Chloride 109 H
Carbon Dioxide 18 L
BUN 4 L
Creatinine 0.9
Glucose 179 H
Calcium 8.2 L
Vital Signs:
Vital Signs
Temp Pulse Resp BP Pulse Ox
98.4 F 83 30 160/79 94
06/05/24 07:05 06/05/24 11:00 06/05/24 11:00 06/05/24 10:43 06/05/24 08:00
I&O
06/04/24 06/05/24 06/06/24
06:59 06:59 06:59
Intake Total 1979
Output Total 300 / 300
Balance 1680 / 1680
[2024-06-05] MEDS: D5/0.9% SODIUM CHLORIDE 1000 IV (13:15)
[2024-06-05 13:16] LABS: Glucose - Point of Care 280 mg/dl (70-99)
[2024-06-05 13:37] LABS: Magnesium 1.7 mg/dl (1.6-2.3); Phosphorus 2.2 mg/dl (2.5-4.5)
[2024-06-05 15:37] LABS: Glucose - Point of Care 194 mg/dl (70-99)
[2024-06-05] MEDS: MAGNESIUM OXIDE 500 MG PO (17:09)
[2024-06-05] MEDS: LOVENOX 40 MG SC (17:09)
[2024-06-05 17:17] LABS: Glucose - Point of Care 180 mg/dl (70-99)
[2024-06-05 19:18] LABS: Glucose - Point of Care 250 mg/dl (70-99)
[2024-06-05] MEDS: NOVOLIN R INSULIN INFUSION 100 IV (21:02)
[2024-06-05 21:10] LABS: Glucose - Point of Care 213 mg/dl (70-99)
[2024-06-05] MEDS: DESYREL 50 MG PO (21:13)
[2024-06-05 23:14] LABS: Glucose - Point of Care 220 mg/dl (70-99)
[2024-06-06] VITALS (13 sets, daily range): BP systolic 152–170; BP diastolic 68–95
--- NOTE | 2024-06-06 01:07 | PTCARENOTE ---
Insulin gtt maintained with Q2 blood sugar checks, see worklist. Pt c/o difficulty sleeping, requests morphine to help him sleep. This RN educated pt that morphine is only ordered for severe pain and provided PRN trazodone for sleep. PRN medication
given for moderate pain. Pt ambulated to bathroom with standby assist to have loose BM. Tylenol provided per JUN for fever at beginning of shift. Pt later awoke diaphoretic, this RN changed bed linens, gown, and provided hygiene care. Pt expresses
gratitude. SaO2 dropped to 84% while sleeping, 2L placed with improvement to 96%. Call crenshaw within reach. Care ongoing.
[2024-06-06 01:09] LABS: Glucose - Point of Care 189 mg/dl (70-99)
[2024-06-06 03:15] LABS: Glucose - Point of Care 154 mg/dl (70-99)
[2024-06-06 04:28] LABS: Hematocrit 26.7 % (39.0-52.0); Hemoglobin 9.5 g/dL (13.0-18.0); Mean Corp Hgb Conc. 35.6 g/dL (33.0-37.0); Mean Corpuscular Hgb 30.5 pg (27.0-31.0); Mean Corpuscular Volume 85.9 fL (80.0-94.0); Mean Platelet Volume 11.6 fL (7.4-10.4); Platelet Count 215 10^3/uL (130-400); Red Blood Cell Count 3.11 10^6/uL (4.70-6.10); Red Cell Dist. Width 15.4 % (11.5-14.5); White Blood Cell Count 9.8 10^3/uL (4.8-10.8)
[2024-06-06 04:53] LABS: Blood Urea Nitrogen 3 mg/dl (9-20); Calcium 8.4 mg/dl (8.4-10.2); Carbon Dioxide 22 mmol/L (22-30); Chloride 109 mmol/L (98-107); Estimated Creatinine Clearance 98 ml/min; Glucose 153 mg/dl (70-99); Lipase 576 U/L (23-300); Potassium 3.5 mmol/L (3.5-5.1); Sodium 137 mmol/L (135-145); eGFR > 60.00
[2024-06-06 05:10] LABS: Triglycerides 988 mg/dl (10-149)
[2024-06-06 05:13] LABS: Glucose - Point of Care 158 mg/dl (70-99)
[2024-06-06 05:26] LABS: Glucose - Point of Care 173 mg/dl (70-99)
[2024-06-06] MEDS: TORADOL 10 MG IV (06:01)
[2024-06-06 07:13] LABS: Glucose - Point of Care 194 mg/dl (70-99)
[2024-06-06] MEDS: PROTONIX IV 40 MG IV (08:04)
[2024-06-06] MEDS: NSS (PRESERVATIVE FREE) 10 ML IV (08:04)
[2024-06-06] MEDS: ASPIR LOW (ENTERIC COATED) 81 MG PO (08:05)
[2024-06-06] MEDS: MAGNESIUM OXIDE 500 MG PO (08:05)
[2024-06-06] MEDS: NORVASC 5 MG PO (08:05)
[2024-06-06] MEDS: TRICOR 145 MG PO (08:05)
[2024-06-06] MEDS: NEURONTIN 300 MG PO ×3 (08:05→21:19)
[2024-06-06] MEDS: VITAMIN D3 (cholecalciferol) 50 MCG PO (08:05)
[2024-06-06] MEDS: LOPRESSOR 50 MG PO ×2 (08:05→19:15)
[2024-06-06] MEDS: ZETIA 10 MG PO (08:05)
[2024-06-06] MEDS: CRESTOR 40 MG PO (08:05)
[2024-06-06] MEDS: ZESTRIL 10 MG PO (08:05)
[2024-06-06] MEDS: ABILIFY 10 MG PO (08:06)
[2024-06-06] MEDS: SENOKOT PO (08:06)
[2024-06-06] MEDS: NOVOLOG FLEXPEN-LOW RESISTANCE 1 UNITS SC (08:07)
--- NOTE | 2024-06-06 08:17 | PTCARENOTE ---
Patient received from casino shift manager. Patient resting comfortably in bed. AAO, VSS. No events noted overnight. No complaints of pain at this time. Currently on an insulin gtt @ 1 unit/hr with D5NS through the IV. Following protocol. No tests
scheduled at this time today. Call crenshaw in reach.
[2024-06-06 09:16] LABS: Glucose - Point of Care 198 mg/dl (70-99)
[2024-06-06 11:12] LABS: Glucose - Point of Care 228 mg/dl (70-99)
--- NOTE | 2024-06-06 11:27 | W.PN.HOSP.TC ---
Today's Communication/Plan
-
Continue insulin drip
Advance diet to low-fat diet
Encourage out of bed
Triglyceride levels in the morning
Assessment / Plan
Assessment / Plan
58 y/o male with abdominal pain from [facility] behavioural health program at [facility]. He was hospitalized at [facility] for inpatient psychiatric reasons and suicidal ideation. Today was supposed to be the last day at [facility] and patient is
supposed to go to [facility] in [place]
CVS: S1-S2 normal
Chest: CTA B/L
Abdomen: Soft, mild tenderness, Bowel sounds present
Extremities: No edema
Abdominal pain much better today
MRI/MRCP-severe acute interstitial edematous pancreatitis. No fluid collection or necrosis. Reactive duodenitis with peripancreatic lymph nodes. Hepatosplenomegaly. Small bilateral pleural effusions with compressive segmental atelectasis
# Acute pancreatitis secondary to hypertriglyceridemia
History of prior pancreatitis secondary to hyper triglyceridemia treated at [facility] in 2020
Advance diet to low-fat diet today
MRI of the abdomen with MRCP as above
Lipase dropping >4000 to 576 today
TG- 2255 to 988 today
Continue insulin drip to treat hypertriglyceridemia-until triglycerides are less than 500
# Fever/SIRS
Infectious disease workup negative, COVID and flu serologies negative, chest x-ray and urinalysis negative
Cultures are negative
Zosyn was started and stopped
# Hyponatremia-resolved
# Diabetes-hemoglobin A1c- 8.2
Restart metformin once off insulin drip. Accu-Cheks and sliding scale coverage
Continue insulin drip to treat hypertriglyceridemia
If blood sugars are lower than 180 we will add dextrose to the fluids and stop if sugar over 200
Patient cannot have insulin pump when he goes back to [facility]. They can do long-acting and short acting insulin.
# Hypertension-Continue amlodipine, lisinopril, metoprolol
# Hyperlipidemia-Continue Zetia ,fenofibrate and statin. He was off of fenofibrate at the psych facility
# Bipolar disease-Continue Abilify, Trazodone, Lexapro. Dose of Abilify decreased per psych
# Hypoalbuminemia
# Obesity per BMI criteria
# DVT prophylaxis-Lovenox
# Full code
D/W RN at bedside
Sister Nataly Oliveira [phone] - called and updated 06/05/24.
Discussed with patient's brother at bedside today.
Time more than 50 min
Anticipated Discharge: > 48 hours
Subjective/Interval History
-
Date of Service: June 06, 2024
Objective Data
-
Labs:
Laboratory Results
06/06/24
04:03
WBC 9.8
Hgb 9.5 L
Hct 26.7 L
Plt Count 215
Sodium 137
Potassium 3.5
Chloride 109 H
Carbon Dioxide 22
BUN 3 L
Creatinine 0.9
Glucose 153 H
Calcium 8.4
Vital Signs:
Vital Signs
Temp Pulse Resp BP Pulse Ox
97.5 F 89 20 157/78 95
06/06/24 11:25 06/06/24 08:05 06/06/24 05:00 06/06/24 08:05 06/06/24 10:12
--- NOTE | 2024-06-06 12:31 | W.PN.UPDATE ---
Update Note
Progress Note Update
Patient is still feeling bloated and has some abdominal discomfort but mood remains stable. Denies dysphoria, anhedonia, hopelessness or suicidal thoughts.
I reduced the Abilify yesterday to 10 mg daily, so far no change in mood.
Will continue F/U.
[2024-06-06] MEDS: NOVOLOG FLEXPEN-LOW RESISTANCE 2 UNITS SC ×2 (13:09→17:07)
[2024-06-06 13:13] LABS: Glucose - Point of Care 240 mg/dl (70-99)
--- NOTE | 2024-06-06 13:38 | CM ---
Addendum entered by Marilee Maya 06/06/24 13:42:
[facility] to [facility] (ph [phone], fax [phone]); Will need to follow up with Maude in admissions at [facility] when patient stabilizes.
Original Note:
Chart reviewed and updated provided to patient's sister, Nataly, , plan is for patient to retur [facility]
[2024-06-06 15:35] LABS: Glucose - Point of Care 224 mg/dl (70-99)
[2024-06-06] MEDS: LOVENOX 40 MG SC (17:08)
[2024-06-06 17:11] LABS: Glucose - Point of Care 222 mg/dl (70-99)
[2024-06-06] MEDS: TYLENOL 650 MG PO (19:15)
[2024-06-06 19:28] LABS: Glucose - Point of Care 209 mg/dl (70-99)
[2024-06-06] MEDS: DESYREL 50 MG PO (21:19)
[2024-06-06 21:29] LABS: Glucose - Point of Care 262 mg/dl (70-99)
[2024-06-06 23:23] LABS: Glucose - Point of Care 252 mg/dl (70-99)
[2024-06-07] VITALS (14 sets, daily range): BP systolic 144–189; BP diastolic 73–84
[2024-06-07 01:15] LABS: Glucose - Point of Care 204 mg/dl (70-99)
[2024-06-07 03:25] LABS: Glucose - Point of Care 184 mg/dl (70-99)
[2024-06-07] MEDS: NOVOLIN R INSULIN INFUSION 100 IV (03:29)
--- NOTE | 2024-06-07 04:34 | PTCARENOTE ---
Pt remains on Insulin gtt titrated with @2hr accuchecks per protocol and order. PT had complaints of pain, medicating given (see MAR). Pt spo2 dropping while sleeping into the low 80's. 2L nc applied spo2 97%. Assessment care and vitals as charted.
[2024-06-07] MEDS: D5/0.9% SODIUM CHLORIDE 1000 IV (05:30)
[2024-06-07 05:34] LABS: Glucose - Point of Care 170 mg/dl (70-99)
[2024-06-07 06:14] LABS: Hematocrit 27.2 % (39.0-52.0); Hemoglobin 9.4 g/dL (13.0-18.0); Mean Corp Hgb Conc. 34.6 g/dL (33.0-37.0); Mean Corpuscular Hgb 29.3 pg (27.0-31.0); Mean Corpuscular Volume 84.7 fL (80.0-94.0); Mean Platelet Volume 11.3 fL (7.4-10.4); Platelet Count 235 10^3/uL (130-400); Red Blood Cell Count 3.21 10^6/uL (4.70-6.10); White Blood Cell Count 9.8 10^3/uL (4.8-10.8)
[2024-06-07 06:42] LABS: Blood Urea Nitrogen 5 mg/dl (9-20); Calcium 8.7 mg/dl (8.4-10.2); Carbon Dioxide 26 mmol/L (22-30); Chloride 104 mmol/L (98-107); Estimated Creatinine Clearance 98 ml/min; Glucose 181 mg/dl (70-99); Potassium 3.4 mmol/L (3.5-5.1); Sodium 134 mmol/L (135-145); eGFR > 60.00
[2024-06-07 07:06] LABS: Triglycerides 863 mg/dl (10-149)
[2024-06-07 07:15] LABS: Glucose - Point of Care 208 mg/dl (70-99)
--- NOTE | 2024-06-07 08:10 | PN.DE.MGMTRT ---
Insulin Management
- -
06/07/2024: Diabetes Management Follow up
58 year old male admitted for evaluation of severe abdominal pain in upper abdomen due to acute pancreatitis
PMH: HTN, HLD, Depression, Anxiety, Bipolar disorder-recently admitted inpatient, T2DM, and prior pancreatitis at [place] 2020 due to hypertriglyceridemia. On admission noted for a lipase >4000 and TG of 2255, started on an insulin infusion for
management of hypertriglyceridemia.
Was using an insulin pump- Medtronic 780G with Humalog insulin up until April 21 when he was hospitalized. Sees [facility]- [place] for routine diabetes care. A1C 8.2%, Cr 0.9, eGFR >60. States he has working
glucose monitor, Accuchek with enough supplies at home.
Pt and sister- Nataly have expressed interest in switching to an oral regimen or SQ insulin via MDI and stop using his insulin pump. Family is requesting this be done as soon as he is ready to transition off the drip.
Pt awake, alert, oriented, resting in bed, offers no complaints, able to discuss diabetes care plan.
Pt remains on continuous insulin infusion, current glucose range 170 to 215, requiring 1-3 units of insulin/hr and additional 2 units corrective insulin with meals. Triglycerides level has improved from 2140 to 863 today, goal<500.
Cont insulin infusion until TG <500. Will treat with D5 IVF if glucose <180, otherwise, NS IVF for glucose >200.
Change from low corrective to moderate corrective insulin with meals.
Will cont to follow and assist with transitioning of SQ insulin. Pt states he is comfortable with insulin self injections using insulin pen.
Diabetes History
- -
Type of Diabetes: 2 requiring insulin
Pre-Admission Diabetes Regimen
06/07/24
05:49
Creatinine 0.9
Lab Results
Hemoglobin A1c 8.2 % (4.0-5.6) H 06/02/24 06:54
Insulin Pump Settings
IP Diabetes Regimen
06/06/24 06/06/24 06/06/24
09:04 11:01 13:02
Glucose
POC Glucose 198 H 228 H 240 H
06/06/24 06/06/24 06/06/24
15:23 16:59 19:16
Glucose
POC Glucose 224 H 222 H 209 H
06/06/24 06/06/24 06/07/24
21:18 23:09 01:04
Glucose
POC Glucose 262 H 252 H 204 H
06/07/24 06/07/24 06/07/24
03:12 05:23 05:49
Glucose 181 H
POC Glucose 184 H 170 H
06/07/24
07:03
Glucose
POC Glucose 208 H
Meal type: Dinner
Meal type: Lunch
Amount consumed: 85%
Amount consumed: 100%
Patient Education
[2024-06-07] MEDS: NOVOLOG FLEXPEN-LOW RESISTANCE 2 UNITS SC ×2 (09:00→12:27)
--- NOTE | 2024-06-07 09:03 | W.PN.HOSP.TC ---
Today's Communication/Plan
-
Continue insulin drip until TG less than 500
Continue to monitor BMP
Replete potassium
PT OT
Encourage OOB
Advance diet to regular after TG<500
Dose of Abilify decreased per psych
Assessment / Plan
Assessment / Plan
Patient is a 58-year-old male who was brought from [facility] to ED following severe midgastric pain and fever. Patient denies any nausea or vomiting. He denies any URI or UTI symptoms. [place] feverish and had chills one day prior to
admission but did not take his temperature. Denies any trauma to the abdomen. Mentions last time he had an alcoholic drink was in [place]. Does not smoke. Does not have a history of gallstones. He was previously using an insulin pump.
Upon arrival in ED, his labs were significant for lipase>4000, WBC=12.6, mild hyponatremia, and highly elevated TG (2255). Also had low-grade fever.
Chronic conditions prior to admission:
Essential hypertension, hyperlipidemia, insulin-dependent DM II, depression, anxiety and bipolar disorder, pancreatitis due to alcohol use disorder (2020)
#Acute recurrent pancreatitis
- Likely in the setting of hyperTG
- Currently tolerating low-fat diet-Advance diet to regular after TG<500
- Continue Insulin drip (until TG<500) and D5 @50 ml/h PRN
- Ondansetron, Tylenol, pain meds as needed
- Abdominal MRI done-severe peripancreatic fluid but no abscess/necrosi
- Trend TG
- Monitor BMP
- GI consulted-appreciate input
# SIRS POA
-Influenza A and COVID neg
-BC x2 -negative to date
-CXR: Hypoaerated lungs without consolidation
-U/A-no evidence of UTI
-Discontinued Zosyn 3.35 q6 06/04
#Hypovolemic Hyponatremia
-Resolved
-Follow BMP
# Hypocalcemia
-Resolved
# Hypokalemia
-Repleted
# Insulin-dependent diabetes type 2
-Metformin held
-Continue insulin drip to improve hyper TG-continue until TG less than 500
-DM DOMESTIC MAID consulted-appreciate input
# Essential hypertension
-Continue home amlodipine, lisinopril, metoprolol
# Hyperlipidemia
-Continue home Zetia, fenofibrate, rosuvastatin 40
-Continue aspirin 81
# Bipolar disorder
-Consulted psych
-Dose of Abilify decreased per psych
# Anxiety/depression
-Continue home trazodone, Lexapro
DVT prophylaxis
Lovenox
Full code
Anticipated Discharge: 24 - 48 hours
Subjective/Interval History
-
Date of Service: June 07, 2024
Patient complains of abdominal pain, which she states is about the same or may be a little bit less than last week. Denies any nausea or vomiting.
Objective Data
-
Labs:
Laboratory Results
06/07/24
05:49
WBC 9.8
Hgb 9.4 L
Hct 27.2 L
Plt Count 235
Sodium 134 L
Potassium 3.4 L
Chloride 104
Carbon Dioxide 26
BUN 5 L
Creatinine 0.9
Glucose 181 H
Calcium 8.7
Vital Signs:
Vital Signs
Temp Pulse Resp BP Pulse Ox
98.6 F 98 26 168/84 93
06/07/24 07:05 06/07/24 06:20 06/07/24 06:20 06/07/24 06:20 06/07/24 06:20
I&O
06/06/24 06/07/24 06/08/24
06:59 06:59 06:59
Intake Total 1046 / 1046
Output Total 1850 / 1850 400 / 400
Balance -804 / -804 -400 / -400
Review of Systems
-
History Source: Patient
All other systems: Reviewed and negative
Abdomen/GI: Reports Abdominal Pain (6 out of 10)
Physical Exam
-
General: Well Developed
HEENT: Normocephalic, Atraumatic and Moist Mucous Membranes
Respiratory: Clear to Auscultation
Cardiac: Regular Rhythm and S1/S2; Negative Murmur, Rub or Gallop
GI: Soft, Normal Bowel Sounds, Tender (Mild midgastric tenderness) and Distended
Rectal: Deferred by Provider
Musculoskeletal: No Clubbing, No Cyanosis and No Edema
Skin: Warm and Dry
Neuro: Awake, Alert, Oriented and AO x 3
Psych: Calm
[2024-06-07 09:13] LABS: Glucose - Point of Care 215 mg/dl (70-99)
--- NOTE | 2024-06-07 09:26 | W.PN.UPDATE ---
Update Note
Progress Note Update
I saw and evaluated the patient. I reviewed the resident�s note and agree with findings and plan as documented in the resident�s note.
c/o abd bloating but not pain.
Gen: NAD, Awake and alert
Eyes: EOMI, PERRLA, no scleral icterus.
Neck: supple.
CV: RRR, +S1/S2, no m/r/g.
Resp: CTAB, no rales, wheezes, or rhonchi.
Abd: +BS, soft, NT, ND
Skin: No rashes.
Neuro: CN 2-12 intact, non-focal.
Psych: Normal mood and affect.
MRI/MRCP: severe acute interstitial edematous pancreatitis. No fluid collection or necrosis. Reactive duodenitis with peripancreatic lymph nodes. Hepatosplenomegaly. Small bilateral pleural effusions with compressive segmental atelectasis
Acute pancreatitis due to hypertriglyceridemia:
-h/o prior pancreatitis due to hypertriglyceridemia treated at [facility] 2020
-diet advanced to low-fat diet 06/06/24
-cont insulin gtt to treat hypertriglyceridemia until triglycerides < 500
-Lipase was > 4000, now down to 576
DM2:
-a1c 8.2%
-SSI/accuchecks
-Restart metformin once off insulin drip
Other problems:
Hypokalemia: PO K
Fever/SIRS, infectious work up was NEG
Hyponatremia, resolved
Essential Hypertension: Continue amlodipine/lisinopril/metoprolol
Hyperlipidemia: Continue Zetia/fenofibrate/statin (was off of fenofibrate at the psych facility)
Bipolar d/o: Continue Abilify (dose decreased by psych)/Trazodone/Lexapro
FULL/Lovenox
[2024-06-07] MEDS: MAGNESIUM OXIDE 500 MG PO (09:54)
[2024-06-07] MEDS: PROTONIX IV 40 MG IV (09:55)
[2024-06-07] MEDS: SENOKOT PO (09:55)
[2024-06-07] MEDS: NEURONTIN 300 MG PO ×3 (09:56→21:02)
[2024-06-07] MEDS: NSS (PRESERVATIVE FREE) 10 ML IV (09:56)
[2024-06-07] MEDS: CRESTOR 40 MG PO (09:57)
[2024-06-07] MEDS: ASPIR LOW (ENTERIC COATED) 81 MG PO (09:57)
[2024-06-07] MEDS: VITAMIN D3 (cholecalciferol) 50 MCG PO (09:57)
[2024-06-07] MEDS: TRICOR 145 MG PO (09:57)
[2024-06-07] MEDS: ABILIFY 10 MG PO (09:57)
[2024-06-07] MEDS: ZETIA 10 MG PO (09:57)
[2024-06-07] MEDS: NORVASC 5 MG PO (09:57)
[2024-06-07] MEDS: LOPRESSOR 50 MG PO ×2 (09:57→21:01)
[2024-06-07] MEDS: ZESTRIL 10 MG PO (09:58)
[2024-06-07] MEDS: KCL 40 MEQ PO (10:00)
[2024-06-07] MEDS: MORPHINE SULFATE 4 MG IV (10:49)
[2024-06-07] MEDS: FLUSH (NSS) 1 FLUSH IV (10:50)
[2024-06-07 11:16] LABS: Glucose - Point of Care 207 mg/dl (70-99)
[2024-06-07 14:16] LABS: Glucose - Point of Care 186 mg/dl (70-99)
[2024-06-07 15:33] LABS: Glucose - Point of Care 193 mg/dl (70-99)
--- NOTE | 2024-06-07 15:43 | PTCARENOTE ---
06/07/2024 DIABETES EDUCATION
I met with Clay to review diabetes management, he has had Type 2 Diabetes for 18 years.
Previously on an insulin pump, due to cost of pump supplies he plans to administer via insulin pen once discharged
He states he has an Accu-Chek glucometer at home, and that his insurance covers Dexcom G6 CGM.
I educated on pathophysiology of T2D, managing with medications, monitoring BG, nutrition, and activity.
I educated and reviewed using Contour Next glucometer, member acknowledged understanding with a self-demonstration of checking his BS.
I educated and demonstrated on insulin injection technique, timing, and storage. Discussed short and long acting insulin; timing of injection, onset/peak/duration, and encouraged Clay to administer his own injections with RN supervision while
admitted.
Discussed normal target glucose ranges and a monitoring schedule of before all meals prior to administering Novolog. I reinforced signs of hyperglycemia, hypoglycemia; BS parameters and recommended HbA1c goals, written material provided.
Encouraged patient to follow up with his PCP for post d/c appointment and to monitor medication and blood glucose levels. Requested prescription sent to pharmacy for test strips and lancets for back up SMBG. Information provided on the
outpatient DSME program. Patient verbalized understanding.
[2024-06-07] MEDS: TORADOL 10 MG IV (15:49)
--- NOTE | 2024-06-07 16:06 | W.PN.UPDATE ---
Update Note
Progress Note Update
Pt seen, chart reviewed, discussed with nursing staff. Lexapro has not been ordered since admission due to prolonged QTc; Abilify was decreased to 10 mg daily. Reviewed outpatient record briefly- pt has diagnosis of Bipolar d/o unspecified, most
recent episode depressed. Pt resting in bed, c/o pain but no acute distress. Affect is pleasant, mood stable. No signs of brian or active depression. Pt was seen by [facility] in Apr and admitted to [facility]. He was taken off of [place]
due to proteinuria (per pt). Pt does have a history of alcohol consumption, possible past alcohol abuse.
Imp: Unspecified Bipolar d/o, depressed- stable, though Lexapro has been held off
Rec: will check EKG/QTc, consider restarting Lexapro (very low risk at usual dose range)
will follow
[2024-06-07 17:07] LABS: Glucose - Point of Care 193 mg/dl (70-99)
[2024-06-07] MEDS: NOVOLOG FLEXPEN-MODERATE RESISTANCE 1 UNITS SC (18:35)
[2024-06-07] MEDS: LOVENOX 40 MG SC (18:36)
[2024-06-07 19:24] LABS: Glucose - Point of Care 166 mg/dl (70-99)
[2024-06-07 21:09] LABS: Glucose - Point of Care 207 mg/dl (70-99)
[2024-06-07 23:12] LABS: Glucose - Point of Care 204 mg/dl (70-99)
[2024-06-08] VITALS (13 sets, daily range): BP systolic 149–170; BP diastolic 72–98
[2024-06-08] MEDS: MORPHINE SULFATE 4 MG IV (01:09)
[2024-06-08 01:10] LABS: Glucose - Point of Care 199 mg/dl (70-99)
[2024-06-08 03:15] LABS: Glucose - Point of Care 229 mg/dl (70-99)
--- NOTE | 2024-06-08 04:25 | PTCARENOTE ---
Pt remains on insulin gtt Q2 accuchecks per order. Pt requesting pain medication once over night after having a bowel movement. Pt had no further complaints. Call crenshaw within reach. Assessment care and vitals as charted.
[2024-06-08 05:15] LABS: Glucose - Point of Care 212 mg/dl (70-99)
[2024-06-08 06:37] LABS: Mean Corp Hgb Conc. 34.6 g/dL (33.0-37.0); Mean Corpuscular Hgb 29.7 pg (27.0-31.0); Mean Corpuscular Volume 85.8 fL (80.0-94.0); Platelet Count 227 10^3/uL (130-400); Red Blood Cell Count 3.03 10^6/uL (4.70-6.10); Red Cell Dist. Width 15.1 % (11.5-14.5); White Blood Cell Count 8.4 10^3/uL (4.8-10.8)
[2024-06-08 06:58] LABS: Blood Urea Nitrogen 10 mg/dl (9-20); Calcium 8.6 mg/dl (8.4-10.2); Carbon Dioxide 26 mmol/L (22-30); Chloride 100 mmol/L (98-107); Estimated Creatinine Clearance 98 ml/min; Glucose 209 mg/dl (70-99); Potassium 3.7 mmol/L (3.5-5.1); Sodium 134 mmol/L (135-145); eGFR > 60.00
[2024-06-08 07:03] LABS: Glucose - Point of Care 216 mg/dl (70-99)
[2024-06-08 07:15] LABS: Triglycerides 876 mg/dl (10-149)
--- NOTE | 2024-06-08 08:32 | PN.DE.MGMTRT ---
Insulin Management
- -
06/08/2024: Diabetes Management Follow up
Patient admitted 06/01 for evaluation of severe abdominal pain in upper abdomen due to acute pancreatitis
PMH: HTN, HLD, Depression, Anxiety, Bipolar disorder-recently admitted inpatient, T2DM, and prior pancreatitis at [place] 2020 due to hypertriglyceridemia. On admission noted for a lipase >4000 and TG of 2255, started on an insulin infusion for
management of hypertriglyceridemia.
Was using an insulin pump- Medtronic 780G with Humalog insulin up until April 21 when he was hospitalized. Sees [facility]- [place] for routine diabetes care. A1C 8.2%, Cr 0.9, eGFR >60. States he has working
glucose monitor, Accuchek with enough supplies at home.
Pt and sister- Nataly have expressed interest in switching to an oral regimen or SQ insulin via MDI and stop using his insulin pump. Family is requesting this be done as soon as he is ready to transition off the drip.
Pt awake, alert, oriented, resting in bed, offers no complaints, able to discuss diabetes care plan.
Pt remains on continuous insulin infusion, current glucose range 186 to 216, requiring 2 units of insulin/hr and additional 2 units corrective insulin with meals. Triglycerides level has improved from 2140 to 876 today, goal<500.
Dr. Castillo requests IV insulin be transitioned to subcutaneous. Patient again does not want to resume insulin pump.
Insulin pump is at bedside, 24 hour basal total 22.8, I:CHO ratio 1: 9.5, correction 1:40.
Based on insulin pump settings will start lantus 14 units now, STOP drip 2 hours after 14 units lantus administered. Will start 6 units novolog AC with low corrective insulin and 25 units Lantus @ hs
Discussed with nurse.
Pt states he is comfortable with insulin self injections using insulin pen.
Diabetes History
- -
Pre-Admission Diabetes Regimen
06/08/24
05:06
Creatinine 0.9
Lab Results
Hemoglobin A1c 8.2 % (4.0-5.6) H 06/02/24 06:54
Insulin Pump Settings
IP Diabetes Regimen
06/07/24 06/07/24 06/07/24
08:59 11:04 14:04
Glucose
POC Glucose 215 H 207 H 186 H
06/07/24 06/07/24 06/07/24
15:20 16:55 19:12
Glucose
POC Glucose 193 H 193 H 166 H
06/07/24 06/07/24 06/08/24
20:58 23:00 00:59
Glucose
POC Glucose 207 H 204 H 199 H
06/08/24 06/08/24 06/08/24
03:03 05:04 05:06
Glucose 209 H
POC Glucose 229 H 212 H
06/08/24
06:52
Glucose
POC Glucose 216 H
Meal type: Dinner
Meal type: Lunch
Meal type: Breakfast
Amount consumed: 80%
Amount consumed: 100%
Amount consumed: 100%
Patient Education
--- NOTE | 2024-06-08 08:50 | W.PN.HOSP.TC ---
Today's Communication/Plan
-
Continue insulin drip with dextrose 5 (as needed)until TG less than 500
Continue to monitor BMP, TG
Restart Lexapro
Follow up with GI and DM TOOL DESIGN ENGINEER re next treatment steps
Assessment / Plan
Assessment / Plan
Patient is a 58-year-old male who was brought from [facility] to ED following severe midgastric pain and fever. Patient denies any nausea or vomiting. He denies any URI or UTI symptoms. [place] feverish and had chills one day prior to
admission but did not take his temperature. Denies any trauma to the abdomen. Mentions last time he had an alcoholic drink was in [place]. Does not smoke. Does not have a history of gallstones. He was previously using an insulin pump.
Upon arrival in ED, his labs were significant for lipase>4000, WBC=12.6, mild hyponatremia, and highly elevated TG (2255). Also had low-grade fever.
Chronic conditions prior to admission:
Essential hypertension, hyperlipidemia, insulin-dependent DM II, depression, anxiety and bipolar disorder, pancreatitis due to alcohol use disorder (2020)
#Acute recurrent pancreatitis
- Most likely in the setting of hyperTG
- Currently tolerating low-fat diet-Advance diet to regular after TG<500
- Continue Insulin drip (until TG<500) and D5 @50 ml/h PRN
- Ondansetron, Tylenol, pain meds as needed
- Abdominal MRI done-severe peripancreatic fluid but no abscess/necrosis
- Trend TG
- Monitor BMP
- GI consulted-appreciate input
# SIRS POA
-Influenza A and COVID neg
-BC x2 -negative to date
-CXR: Hypoaerated lungs without consolidation
-U/A-no evidence of UTI
-Discontinued Zosyn 3.35 q6 on 06/04
#Hypovolemic Hyponatremia
-Resolved
-Follow BMP
# Hypocalcemia
-Resolved
# Hypokalemia
-Resolved
-Replete as needed
# Insulin-dependent diabetes type 2
-Metformin held
-Continue insulin drip to improve hyper TG-continue until TG less than 500
-DM TOOL DESIGN ENGINEER consulted-appreciate input- to cont BBI upon discharge
# Essential hypertension
-Continue home amlodipine, lisinopril, metoprolol
# Hyperlipidemia
-Continue home Zetia, fenofibrate, rosuvastatin 40
-On max dose of Tricor and statin- no other adjunct treatments are available to treat hyperTG
-Advised patient oo lifestyle modification including daily exercise and low-fat diet
-Continue aspirin 81
# Bipolar disorder
-Consulted psych
-Dose of Abilify decreased per psych
-Will restart Lexapro
# Anxiety/depression
-Continue home trazodone, Lexapro
DVT prophylaxis
Lovenox
Full code
Anticipated Discharge: 24 - 48 hours
Subjective/Interval History
-
Date of Service: June 08, 2024
Patient does not offer any complaints.
Objective Data
-
Labs:
Laboratory Results
06/08/24
05:06
WBC 8.4
Hgb 9.0 L
Hct 26.0 L
Plt Count 227
Sodium 134 L
Potassium 3.7
Chloride 100
Carbon Dioxide 26
BUN 10
Creatinine 0.9
Glucose 209 H
Calcium 8.6
Vital Signs:
Vital Signs
Temp Pulse Resp BP Pulse Ox
98.5 F 104 23 159/94 96
06/08/24 07:04 06/08/24 06:00 06/08/24 06:00 06/08/24 06:00 06/08/24 06:00
I&O
06/07/24 06/08/24 06/09/24
06:59 06:59 06:59
Intake Total 1046 / 1046 1125 / 1125
Output Total 1850 / 1850 3500 / 3500
Balance -804 / -804 -2375 / -2375
Review of Systems
-
History Source: Patient
All other systems: Reviewed and negative
Abdomen/GI: Reports Abdominal Pain (4 out of 10)
Physical Exam
-
General: Well Developed
HEENT: Normocephalic, Atraumatic and Moist Mucous Membranes
Respiratory: Clear to Auscultation
Cardiac: Regular Rhythm and S1/S2; Negative Murmur, Rub or Gallop
GI: Soft, Normal Bowel Sounds, Tender (Mild midgastric tenderness) and Distended
Rectal: Deferred by Provider
Musculoskeletal: No Clubbing, No Cyanosis and No Edema
Skin: Warm and Dry
Neuro: Awake, Alert, Oriented and AO x 3
Psych: Calm
[2024-06-08] MEDS: CRESTOR 40 MG PO (08:52)
[2024-06-08] MEDS: LOPRESSOR 50 MG PO ×2 (08:53→20:18)
[2024-06-08] MEDS: ZESTRIL 10 MG PO (08:53)
[2024-06-08] MEDS: ASPIR LOW (ENTERIC COATED) 81 MG PO (08:54)
[2024-06-08] MEDS: VITAMIN D3 (cholecalciferol) 50 MCG PO (08:54)
[2024-06-08] MEDS: MAGNESIUM OXIDE 500 MG PO (08:54)
[2024-06-08] MEDS: NORVASC 5 MG PO (08:54)
[2024-06-08] MEDS: NSS (PRESERVATIVE FREE) 10 ML IV (08:54)
[2024-06-08] MEDS: SENOKOT PO ×2 (08:54→09:00)
[2024-06-08] MEDS: NEURONTIN 300 MG PO ×3 (08:54→22:09)
[2024-06-08] MEDS: ZETIA 10 MG PO (08:54)
[2024-06-08] MEDS: TRICOR 145 MG PO (08:54)
[2024-06-08] MEDS: ABILIFY 10 MG PO (08:54)
[2024-06-08] MEDS: PROTONIX IV 40 MG IV (08:55)
--- NOTE | 2024-06-08 08:55 | W.PN.UPDATE ---
Update Note
Progress Note Update
I saw and evaluated the patient. I reviewed the resident�s note and agree with findings and plan as documented in the resident�s note.
No new complaints.
Gen: NAD, Awake and alert
Eyes: EOMI, PERRLA, no scleral icterus.
Neck: supple.
CV: Remains RRR, +S1/S2, no m/r/g.
Resp: Remains CTAB, no rales, wheezes, or rhonchi.
Abd: Remains +BS, soft, NT, ND
Skin: No rashes.
Neuro: CN 2-12 intact, non-focal.
Psych: Normal mood and affect.
MRI/MRCP: severe acute interstitial edematous pancreatitis. No fluid collection or necrosis. Reactive duodenitis with peripancreatic lymph nodes. Hepatosplenomegaly. Small bilateral pleural effusions with compressive segmental atelectasis
Acute pancreatitis due to hypertriglyceridemia:
-h/o prior pancreatitis due to hypertriglyceridemia treated at [facility] 2020
-diet advanced to low-fat diet 06/06/24
-cont insulin gtt to treat hypertriglyceridemia until triglycerides < 500 (if able)
-Lipase was > 4000, now down to 576
DM2:
-a1c 8.2%
-SSI/accuchecks
-Restart metformin once off insulin drip
-Case discussed with Shirley [place]. Patient does not want to go back on his insulin pump. He will be transitioned to basal bolus insulin.
Other problems:
Hypokalemia, resolved
Fever/SIRS, infectious work up was NEG
Hyponatremia, resolved
Essential Hypertension: Continue amlodipine/lisinopril/metoprolol
Hyperlipidemia: Continue Zetia/fenofibrate/statin ([facility]
Bipolar d/o: Continue Abilify ([facility]Trazodone/Lexapro
FULL/Lovenox
Total time spent on today's encounter was 50 minutes which included time spent in counseling the patient/family regarding diagnosis and treatment plan as listed above, goals of care, and symptom management. Case was discussed with nursing staff,
specialists, and care coordinators/case management. All labs and imaging personally reviewed by me. Remainder the time spent in detailed review of previous records, lab data, imaging, and other medical provider documentation.
[2024-06-08 09:10] LABS: Glucose - Point of Care 205 mg/dl (70-99)
[2024-06-08] MEDS: NOVOLOG FLEXPEN-MODERATE RESISTANCE 2 UNITS SC (09:39)
[2024-06-08] MEDS: LANTUS 0.14 UNITS SC (11:00)
[2024-06-08 11:08] LABS: Glucose - Point of Care 239 mg/dl (70-99)
[2024-06-08 13:15] LABS: Glucose - Point of Care 218 mg/dl (70-99)
[2024-06-08] MEDS: NOVOLOG FLEXPEN 5 UNITS SC ×2 (13:29→17:04)
--- NOTE | 2024-06-08 14:57 | W.PN.UPDATE ---
Update Note
Progress Note Update
Pt seen resting calmly in bed, in no distress. Affect pleasant. Mood stable. Pt makes eye contact, answers questions appropriately. EKG yesterday PM- QTc 507. Pt states he was on Lexapro for a couple months, has been stopped since admission due
to potential effect on QTc, which was 538 on 06/01. Pt not sure is he has had Wellbutrin before.
Imp: Unspecified Bipolar d/o, depressed- stable, though Lexapro has been stopped
QTc remains prolonged, though improved
Rec: Would continue to hold off antidepressant for now, continue Abilify. Return to [facility] when medically cleared.
will follow
--- NOTE | 2024-06-08 16:18 | PTOTSP ---
Pt is independent with ambulation without need for any assistive devices. Gait is steady. No further PT needs. Will sign off.
--- NOTE | 2024-06-08 16:53 | PTCARENOTE ---
Orders received to d/c insulin pump and downgrade to med/surg. Report given to RN on . Transferred to rm [phone] in wheelchair
[2024-06-08 16:58] LABS: Glucose - Point of Care 218 mg/dl (70-99)
[2024-06-08] MEDS: LOVENOX 40 MG SC (17:03)
[2024-06-08] MEDS: NOVOLOG FLEXPEN-LOW RESISTANCE 2 UNITS SC (17:04)
[2024-06-08 21:04] LABS: Glucose - Point of Care 249 mg/dl (70-99)
[2024-06-08] MEDS: LANTUS 0.25 UNITS SC (22:09)
[2024-06-08] MEDS: TORADOL 10 MG IV (22:09)
[2024-06-09 07:33] LABS: Glucose - Point of Care 203 mg/dl (70-99)
[2024-06-09 07:45] VITALS: BP 153/80
--- NOTE | 2024-06-09 07:56 | PN.DE.MGMTRT ---
Insulin Management
- -
06/09/2024: Diabetes Management Follow up
Patient admitted 06/01 for evaluation of severe abdominal pain in upper abdomen due to acute pancreatitis
PMH: HTN, HLD, Depression, Anxiety, Bipolar disorder-recently admitted inpatient, T2DM, and prior pancreatitis at [place] 2020 due to hypertriglyceridemia. On admission noted for a lipase >4000 and TG of 2255, started on an insulin infusion for
management of hypertriglyceridemia.
Was using an insulin pump- Medtronic 780G with Humalog insulin up until April 21 when he was hospitalized. Sees [facility]- [place] for routine diabetes care. A1C 8.2%, Cr 0.9, eGFR >60. States he has working
glucose monitor, Accuchek with enough supplies at home.
Pt and sister- Nataly have expressed interest in switching to an oral regimen or SQ insulin via MDI and stop using his insulin pump. Family is requesting this be done as soon as he is ready to transition off the drip.
Pt awake, alert, oriented, resting in bed, offers no complaints, able to discuss diabetes care plan.
Triglycerides level has improved from 2140 to 718 today, goal<500.
Insulin pump is at bedside, 24 hour basal total 22.8, I:CHO ratio 1: 9.5, correction 1:40.
3/4 Transitioned from insulin infusion to subcutaneous injections basal/bolus at patient request. He states he cannot afford pump supplies.
Based on insulin pump settings started 5 units novolog AC with low corrective insulin and 25 units Lantus @ hs. Pre dinner glucose 218, HS 249.
3/ Fasting glucose 203. Will increase HS lantus to 28 units and AC novolog to 8 units with low corrective insulin, will restart metformin 1000 mg BID, first dose this AM.
Discussed with nurse.
Pt states he is comfortable with insulin self injections using insulin pen.
Diabetes History
- -
Type of Diabetes: 2 requiring insulin
Pre-Admission Diabetes Regimen
Lab Results
Hemoglobin A1c 8.2 % (4.0-5.6) H 06/02/24 06:54
Insulin Pump Settings
IP Diabetes Regimen
06/08/24 06/08/24 06/08/24
08:58 10:57 13:04
POC Glucose 205 H 239 H 218 H
06/08/24 06/08/24 06/09/24
16:58 21:02 07:32
POC Glucose 218 H 249 H 203 H
Meal type: Breakfast
Amount consumed: 100%
Patient Education
[2024-06-09] MEDS: NOVOLOG FLEXPEN-LOW RESISTANCE 2 UNITS SC ×3 (08:09→15:56)
[2024-06-09] MEDS: NOVOLOG FLEXPEN 8 UNITS SC ×3 (08:11→15:57)
[2024-06-09] MEDS: CRESTOR 40 MG PO (08:12)
[2024-06-09] MEDS: ASPIR LOW (ENTERIC COATED) 81 MG PO (08:12)
[2024-06-09] MEDS: LEXAPRO 5 MG PO (08:12)
[2024-06-09] MEDS: ABILIFY 10 MG PO (08:12)
[2024-06-09] MEDS: GLUCOPHAGE 1000 MG PO ×2 (08:12→15:56)
[2024-06-09] MEDS: LOPRESSOR 50 MG PO ×2 (08:12→20:16)
[2024-06-09] MEDS: SENOKOT 8.6 MG PO (08:12)
[2024-06-09] MEDS: PROTONIX 40 MG PO (08:12)
[2024-06-09] MEDS: ZETIA 10 MG PO (08:12)
[2024-06-09] MEDS: NEURONTIN 300 MG PO ×3 (08:12→21:08)
[2024-06-09] MEDS: TRICOR 145 MG PO (08:13)
[2024-06-09] MEDS: MAGNESIUM OXIDE 500 MG PO (08:13)
[2024-06-09] MEDS: LEXAPRO 10 MG PO (08:13)
[2024-06-09] MEDS: NORVASC 5 MG PO (08:13)
[2024-06-09] MEDS: VITAMIN D3 (cholecalciferol) 50 MCG PO (08:13)
[2024-06-09] MEDS: ZESTRIL 10 MG PO (08:13)
[2024-06-09] MEDS: NOVOLOG FLEXPEN SC (09:06)
[2024-06-09 09:09] LABS: Hematocrit 29.2 % (39.0-52.0); Hemoglobin 9.8 g/dL (13.0-18.0); Mean Corp Hgb Conc. 33.6 g/dL (33.0-37.0); Mean Corpuscular Hgb 29.3 pg (27.0-31.0); Mean Corpuscular Volume 87.4 fL (80.0-94.0); Mean Platelet Volume 11.6 fL (7.4-10.4); Platelet Count 279 10^3/uL (130-400); Red Blood Cell Count 3.34 10^6/uL (4.70-6.10); Red Cell Dist. Width 14.6 % (11.5-14.5); White Blood Cell Count 11.1 10^3/uL (4.8-10.8)
[2024-06-09 09:21] LABS: Blood Urea Nitrogen 12 mg/dl (9-20); Calcium 9.1 mg/dl (8.4-10.2); Carbon Dioxide 29 mmol/L (22-30); Chloride 100 mmol/L (98-107); Estimated Creatinine Clearance 98 ml/min; Glucose 203 mg/dl (70-99); Potassium 3.8 mmol/L (3.5-5.1); Sodium 136 mmol/L (135-145); eGFR > 60.00
--- NOTE | 2024-06-09 09:31 | W.PN.HOSP.TC ---
Today's Communication/Plan
-
BG management per DM INTERVENTIONAL PHYSIATRIST
Can be potentially discharged later today
Assessment / Plan
Assessment / Plan
Patient is a 58-year-old male who was brought from [facility] to ED following severe midgastric pain and fever. Patient denies any nausea or vomiting. He denies any URI or UTI symptoms. [place] feverish and had chills one day prior to
admission but did not take his temperature. Denies any trauma to the abdomen. Mentions last time he had an alcoholic drink was in [place]. Does not smoke. Does not have a history of gallstones. He was previously using an insulin pump.
Upon arrival in ED, his labs were significant for lipase>4000, WBC=12.6, mild hyponatremia, and highly elevated TG (2255). Also had low-grade fever.
Chronic conditions prior to admission:
Essential hypertension, hyperlipidemia, insulin-dependent DM II, depression, anxiety and bipolar disorder, pancreatitis due to alcohol use disorder (2020)
#Acute recurrent pancreatitis
- Most likely in the setting of hyperTG
- Currently tolerating low-fat diet
- Stopped Insulin drip on 06/08
- Abdominal MRI done-severe peripancreatic fluid but no abscess/necrosis
- TG downtrending but still >500
- Cont to monitor BMP
- GI consulted-appreciate input
- Ondansetron, Tylenol, pain meds as needed
# SIRS POA
-Likely d/t pancreatics
-Influenza A and COVID neg
-BC x2 -negative to date
-CXR: Hypoaerated lungs without consolidation
-U/A-no evidence of UTI
-Discontinued Zosyn 3.35 q6 on 06/04
#Hypovolemic Hyponatremia
-Resolved
-Follow BMP
# Hypocalcemia
-Resolved
# Hypokalemia
-Resolved
# Insulin-dependent diabetes type 2
-Metformin restarted on 06/09 by DM INTERVENTIONAL PHYSIATRIST
-Insulin drip stopped on 06/08
-Low SSI
-Lantus 28 U and NovoLog 8 AC
# Essential hypertension
-Continue home amlodipine, lisinopril, metoprolol
# Hyperlipidemia
-Continue home Zetia, fenofibrate, rosuvastatin 40
-On max dose of Tricor and statin- no other adjunct treatments are available to treat hyperTG
-Advised patient on lifestyle modification including daily exercise and low-fat diet
-Continue aspirin 81
# Bipolar disorder
-Consulted psych
-Dose of Abilify decreased per psych
-Lexapro held d/t QTc prolongation
# Anxiety/depression
-Continue home trazodone, Lexapro
DVT prophylaxis
Lovenox
Full code
Anticipated Discharge: Within 24 hours
Subjective/Interval History
-
Date of Service: June 09, 2024
Objective Data
-
Labs:
Laboratory Results
06/09/24
08:13
WBC 11.1 H
Hgb 9.8 L
Hct 29.2 L
Plt Count 279 D
Sodium 136
Potassium 3.8
Chloride 100
Carbon Dioxide 29
BUN 12
Creatinine 0.9
Glucose 203 H
Calcium 9.1
Vital Signs:
Vital Signs
Temp Pulse Resp BP Pulse Ox
98.7 F 90 18 153/80 94
06/09/24 07:45 06/09/24 07:45 06/09/24 07:45 06/09/24 07:45 06/09/24 07:45
I&O
06/08/24 06/09/24 06/10/24
06:59 06:59 06:59
Intake Total 1125 / 1125 960 / 960
Output Total 3500 / 3500 1500 / 1500
Balance -2375 / -2375 -540 / -540
Review of Systems
-
History Source: Patient
All other systems: Reviewed and negative
Abdomen/GI: Reports Abdominal Pain (4 out of 10)
Physical Exam
-
General: Well Developed
HEENT: Normocephalic, Atraumatic and Moist Mucous Membranes
Respiratory: Clear to Auscultation
Cardiac: Regular Rhythm and S1/S2; Negative Murmur, Rub or Gallop
GI: Soft, Normal Bowel Sounds, Tender (Mild midgastric tenderness) and Distended
Rectal: Deferred by Provider
Musculoskeletal: No Clubbing, No Cyanosis and No Edema
Skin: Warm and Dry
Neuro: Awake, Alert, Oriented and AO x 3
Psych: Calm
[2024-06-09 09:32] LABS: Triglycerides 718 mg/dl (10-149)
--- NOTE | 2024-06-09 10:57 | CM ---
manager of network reviewed patient's chart and reached out to [facility] and spoke with Maude Fire Manager and plan is for [facility] to [facility] patient up tomorrow at 10am from [facility].
[facility] (ph [phone], fax [phone]);
[facility]
Report [phone]
.
Plan; [facility] to pick patient up tomorrow at 10am.
[2024-06-09 11:40] LABS: Glucose - Point of Care 233 mg/dl (70-99)
--- NOTE | 2024-06-09 13:12 | W.PN.UPDATE ---
Update Note
Progress Note Update
I saw and evaluated the patient. I reviewed the resident�s note and agree with findings and plan as documented in the resident�s note.
No new complaints.
Gen: NAD, Awake and alert
Eyes: EOMI, PERRLA, no scleral icterus.
Neck: supple.
CV: Continues to remain RRR, +S1/S2, no m/r/g.
Resp: Continues to remain CTAB, no rales, wheezes, or rhonchi.
Abd: Remains +BS, soft, NT, ND
Skin: No rashes.
Neuro: CN 2-12 intact, non-focal.
Psych: Normal mood and affect.
MRI/MRCP: severe acute interstitial edematous pancreatitis. No fluid collection or necrosis. Reactive duodenitis with peripancreatic lymph nodes. Hepatosplenomegaly. Small bilateral pleural effusions with compressive segmental atelectasis
Acute pancreatitis due to hypertriglyceridemia:
-h/o prior pancreatitis due to hypertriglyceridemia treated at [facility] 2020
-diet advanced to low-fat diet 06/06/24
-was on insulin gtt to treat hypertriglyceridemia, triglycerides down to 718
-Lipase was > 4000, now down to 576
DM2:
-a1c 8.2%
-SSI/accuchecks
-was on insulin drip, now off
-Patient does not want to go back on his insulin pump. Now transitioned to basal bolus insulin. Increase Lantus to 28U and premeal Novolog to 8U.
-Metformin restarted
Other problems:
Hypokalemia, resolved
Fever/SIRS, infectious work up was NEG
Hyponatremia, resolved
Essential Hypertension: Continue amlodipine/lisinopril/metoprolol
Hyperlipidemia: Continue Zetia/fenofibrate/statin (was off of fenofibrate at the psych facility)
Bipolar d/o: Continue Abilify (dose decreased by psych)/Trazodone/Lexapro
FULL/Lovenox
Dispo: Plan for d/c 06/10/24
--- NOTE | 2024-06-09 14:31 | W.PN.UPDATE ---
Update Note
Progress Note Update
patient seen chart reviewed. mr zavala is well known to me from prior rx at [facility]. he has a long hx of depression. he is appearing better today physically but remains depressed although less so than i have seen him in the past. when he first came in
he was taking lexapro and abilify. noted dr emery decreased abilify fromn 20 mg to 10 mg q day with which i agree as it was being used adjunctively for rx of depression not for psychosis . he has NO hx of psychosis. cannot restart lexapro which
he did feel was helpful given qtc issues. his qtc remains over 500. he has never taken zoloft and since he was benefitting from lexapro...zoloft might be a reasonable choice as it too is serotinergic. will start with 50 mg. in my opinion mr zavala
should apply for disability. he has suffered through depression with many hospitalizations on in pt and in php and this would alleviate part of his life stress in supporting himself. he does have a therapeutic case manager at [facility] which would help w this
once he is back as an out pt. it is my understanding he will be dc tomorrow to [facility].
[2024-06-09 15:35] VITALS: BP 158/86
[2024-06-09 15:52] LABS: Glucose - Point of Care 245 mg/dl (70-99)
[2024-06-09] MEDS: LOVENOX 40 MG SC (15:57)
[2024-06-09] MEDS: TYLENOL 650 MG PO (18:27)
[2024-06-09] MEDS: TORADOL 10 MG IV (20:16)
[2024-06-09] MEDS: DESYREL 50 MG PO (20:17)
[2024-06-09] MEDS: LANTUS 0.28 UNITS SC (21:08)
[2024-06-09 21:18] LABS: Glucose - Point of Care 210 mg/dl (70-99)
[2024-06-09 23:08] VITALS: BP 156/84
[2024-06-10] MEDS: TYLENOL 650 MG PO (05:07)
--- NOTE | 2024-06-10 06:17 | PTCARENOTE ---
AAO x 4. Patient anxious, with flat affect. VSS. Patient complains of abdominal discomfort and fullness. Per patient, 4 loose stools 06/09/24. PRN toradol and tylenol administered for pain management. Plan for discharge at 10 AM to [facility]. OOB
ad antonio. Bed in lowest position. Call crenshaw and perosnal belongings within reach. All patient needs met, at this time.
[2024-06-10 07:20] VITALS: BP 149/81
[2024-06-10 07:23] LABS: Glucose - Point of Care 203 mg/dl (70-99)
[2024-06-10 07:53] LABS: Hematocrit 28.4 % (39.0-52.0); Hemoglobin 9.7 g/dL (13.0-18.0); Mean Corp Hgb Conc. 34.2 g/dL (33.0-37.0); Mean Corpuscular Hgb 29.1 pg (27.0-31.0); Mean Corpuscular Volume 85.3 fL (80.0-94.0); Mean Platelet Volume 11.1 fL (7.4-10.4); Platelet Count 271 10^3/uL (130-400); Red Blood Cell Count 3.33 10^6/uL (4.70-6.10); Red Cell Dist. Width 14.1 % (11.5-14.5)
--- NOTE | 2024-06-10 07:53 | PN.DE.MGMTRT ---
Insulin Management
- -
06/10/2024: Diabetes Management Follow up
Patient admitted 06/01 for evaluation of severe abdominal pain in upper abdomen due to acute pancreatitis
PMH: HTN, HLD, Depression, Anxiety, Bipolar disorder-recently admitted inpatient, T2DM, and prior pancreatitis at [facility] 2020 due to hypertriglyceridemia. On admission noted for a lipase >4000 and TG of 2255, started on an insulin infusion for
management of hypertriglyceridemia.
Was using an insulin pump- Medtronic 780G with Humalog insulin up until April 21 when he was hospitalized. Sees [facility] [place] for routine diabetes care. A1C 8.2%, Cr 0.9, eGFR >60. States he has working
glucose monitor, Accuchek with enough supplies at home.
Pt and sister- Nataly have expressed interest in switching to an oral regimen or SQ insulin via MDI and stop using his insulin pump. Family is requesting this be done as soon as he is ready to transition off the drip.
Pt awake, alert, oriented, resting in bed, offers no complaints, able to discuss diabetes care plan.
Triglycerides level has improved from 2140 to 656 today, goal<500.
Insulin pump is at bedside, 24 hour basal total 22.8, I:CHO ratio 1: 9.5, correction 1:40.
06/09 Fasting glucose 203. HS lantus increased to 28 units and AC novolog to 8 units with low corrective insulin, with metformin 1000 mg BID. Glucose range 203 to 245.
06/10 Will increase HS lantus to 32 units and AC novolog to 12 units with low corrective insulin and metformin 1000 mg BID.
Discussed with nurse.
Patient for discharge today, insulin prescriptions in ambulatory orders. Basaglar and Fiasp are preferred.
Pt states he is comfortable with insulin self injections using insulin pen.
Diabetes History
- -
Type of Diabetes: 2 requiring insulin
Pre-Admission Diabetes Regimen
06/09/24
08:13
Creatinine 0.9
Lab Results
Hemoglobin A1c 8.2 % (4.0-5.6) H 06/02/24 06:54
Insulin Pump Settings
IP Diabetes Regimen
06/09/24 06/09/24 06/09/24
08:13 11:38 15:51
Glucose 203 H
POC Glucose 233 H 245 H
06/09/24 06/10/24
21:16 07:20
Glucose
POC Glucose 210 H 203 H
Meal type: Lunch
Meal type: Breakfast
Amount consumed: 100%
Amount consumed: 100%
Patient Education
[2024-06-10] MEDS: NOVOLOG FLEXPEN-LOW RESISTANCE 2 UNITS SC (08:05)
[2024-06-10] MEDS: NOVOLOG FLEXPEN 12 UNITS SC (08:06)
[2024-06-10] MEDS: MAGNESIUM OXIDE 500 MG PO (08:07)
[2024-06-10] MEDS: SENOKOT 8.6 MG PO (08:07)
[2024-06-10] MEDS: ABILIFY 10 MG PO (08:07)
[2024-06-10] MEDS: GLUCOPHAGE 1000 MG PO (08:07)
[2024-06-10] MEDS: ZETIA 10 MG PO (08:07)
[2024-06-10] MEDS: ZESTRIL 10 MG PO (08:07)
[2024-06-10] MEDS: CRESTOR 40 MG PO (08:07)
[2024-06-10] MEDS: NEURONTIN 300 MG PO (08:07)
[2024-06-10] MEDS: LOPRESSOR 50 MG PO (08:07)
[2024-06-10] MEDS: PROTONIX 40 MG PO (08:07)
[2024-06-10] MEDS: TRICOR 145 MG PO (08:07)
[2024-06-10] MEDS: ZOLOFT 50 MG PO (08:08)
[2024-06-10] MEDS: NORVASC 5 MG PO (08:08)
[2024-06-10] MEDS: ASPIR LOW (ENTERIC COATED) 81 MG PO (08:08)
[2024-06-10] MEDS: VITAMIN D3 (cholecalciferol) 50 MCG PO (08:10)
[2024-06-10] MEDS: NOVOLOG FLEXPEN SC (08:22)
[2024-06-10 08:29] LABS: Blood Urea Nitrogen 13 mg/dl (9-20); Calcium 9.3 mg/dl (8.4-10.2); Carbon Dioxide 27 mmol/L (22-30); Chloride 102 mmol/L (98-107); Estimated Creatinine Clearance 98 ml/min; Glucose 202 mg/dl (70-99); Potassium 3.9 mmol/L (3.5-5.1); Sodium 135 mmol/L (135-145); eGFR > 60.00
[2024-06-10 08:46] LABS: Triglycerides 656 mg/dl (10-149)
--- NOTE | 2024-06-10 09:01 | CM ---
Chart reviewed and patient to transfer to [place] today. [place] team will be out to [facility] today at 10am to pick patient up. bindery production manager spoke with Maude, Farm Crops Teacher at [facility] this am.
[facility]
Report [phone]
.
Plan: Patient to transfer to [place] today.
--- NOTE | 2024-06-10 09:01 | W.PN.HOSP.TC ---
Today's Communication/Plan
-
Discharge to [facility] today
Assessment / Plan
Assessment / Plan
Patient is a 58-year-old male who was brought from [facility] to ED following severe midgastric pain and fever. Patient denies any nausea or vomiting. He denies any URI or UTI symptoms. [place] feverish and had chills one day prior to
admission but did not take his temperature. Denies any trauma to the abdomen. Mentions last time he had an alcoholic drink was in [place]. Does not smoke. Does not have a history of gallstones. He was previously using an insulin pump.
Upon arrival in ED, his labs were significant for lipase>4000, WBC=12.6, mild hyponatremia, and highly elevated TG (2255). Also had low-grade fever.
Chronic conditions prior to admission:
Essential hypertension, hyperlipidemia, insulin-dependent DM II, depression, anxiety and bipolar disorder, pancreatitis due to alcohol use disorder (2020)
#Acute recurrent pancreatitis
- Most likely in the setting of hyperTG
- Currently tolerating low-fat diet
- Stopped Insulin drip on 06/08
- Abdominal MRI done-severe peripancreatic fluid but no abscess/necrosis
- TG downtrending
- GI consulted-appreciate input
- Ondansetron, Tylenol, pain meds as needed
# SIRS POA
-Likely d/t pancreatics
-Influenza A and COVID neg
-BC x2 -negative to date
-CXR: Hypoaerated lungs without consolidation
-U/A-no evidence of UTI
-Discontinued Zosyn 3.35 q6 on 06/04
#Hypovolemic Hyponatremia
-Resolved
# Hypocalcemia
-Resolved
# Hypokalemia
-Resolved
# Insulin-dependent diabetes type 2
-Metformin restarted on 06/09 by DM LITHOGRAPHER APPRENTICE
-Insulin drip stopped on 06/08
-Low SSI
-DM LITHOGRAPHER APPRENTICE consulted-appreciate inpu- insulin requirements per DM LITHOGRAPHER APPRENTICE
# Essential hypertension
-Continue home amlodipine, lisinopril, metoprolol
# Hyperlipidemia
-Continue home Zetia, fenofibrate, rosuvastatin 40
-On max dose of Tricor and statin- no other adjunct treatments are available to treat hyperTG
-Advised patient on lifestyle modification including daily exercise and low-fat diet
-Continue aspirin 81
# Bipolar disorder
-Consulted psych
-Dose of Abilify decreased per psych
-Lexapro held d/t QTc prolongation
# Anxiety/depression
-Continue home trazodone, Lexapro
DVT prophylaxis
Lovenox
Full code
Anticipated Discharge: Today
Subjective/Interval History
-
Date of Service: June 10, 2024
Patient does not offer any complaints.
Objective Data
-
Labs:
Laboratory Results
06/10/24
07:25
WBC 13.0 H
Hgb 9.7 L
Hct 28.4 L
Plt Count 271
Sodium 135
Potassium 3.9
Chloride 102
Carbon Dioxide 27
BUN 13
Creatinine 0.9
Glucose 202 H
Calcium 9.3
Vital Signs:
Vital Signs
Temp Pulse Resp BP Pulse Ox
97.4 F 88 18 149/81 96
06/10/24 07:20 06/10/24 07:20 06/10/24 07:20 06/10/24 07:20 06/10/24 07:20
I&O
06/09/24 06/10/24 06/11/24
06:59 06:59 06:59
Intake Total 960 / 960 2159
Output Total 1500 / 1500
Balance -540 / -540 2159
Review of Systems
-
History Source: Patient
All other systems: Reviewed and negative
Abdomen/GI: Reports Abdominal Pain (4 out of 10)
Physical Exam
-
General: Well Developed
HEENT: Normocephalic, Atraumatic and Moist Mucous Membranes
Respiratory: Clear to Auscultation
Cardiac: Regular Rhythm and S1/S2; Negative Murmur, Rub or Gallop
GI: Soft, Normal Bowel Sounds, Tender (Mild tenderness) and Distended
Musculoskeletal: No Clubbing, No Cyanosis and No Edema
Skin: Warm and Dry
Neuro: Awake, Alert, Oriented and AO x 3
Psych: Calm
--- NOTE | 2024-06-10 09:27 | W.PN.UPDATE ---
Update Note
Progress Note Update
I saw and evaluated the patient. I reviewed the resident�s note and agree with findings and plan as documented in the resident�s note.
No new complaints.
Gen: NAD, Awake and alert
Eyes: EOMI, PERRLA, no scleral icterus.
Neck: supple.
CV: RRR, +S1/S2, no m/r/g.
Resp: CTAB, no rales, wheezes, or rhonchi.
Abd: +BS, soft, NT, ND
Skin: No rashes.
Neuro: CN 2-12 intact, non-focal.
Psych: Normal mood and affect.
MRI/MRCP: severe acute interstitial edematous pancreatitis. No fluid collection or necrosis. Reactive duodenitis with peripancreatic lymph nodes. Hepatosplenomegaly. Small bilateral pleural effusions with compressive segmental atelectasis
Acute pancreatitis due to hypertriglyceridemia:
-h/o prior pancreatitis due to hypertriglyceridemia treated at [facility] 2020
-diet advanced to low-fat diet 06/06/24
-was on insulin gtt to treat hypertriglyceridemia, triglycerides down to 718
-Lipase was > 4000, now down to 576
DM2:
-a1c 8.2%
-SSI/accuchecks
-was on insulin drip, now off
-Patient does not want to go back on his insulin pump. Now transitioned to basal bolus insulin. Increase Lantus to 28U and premeal Novolog to 8U.
-Metformin restarted
Other problems:
Hypokalemia, resolved
Fever/SIRS, infectious work up was NEG
Hyponatremia, resolved
Essential Hypertension: Continue amlodipine/lisinopril/metoprolol
Hyperlipidemia: Continue Zetia/fenofibrate/statin (was off of fenofibrate at the psych facility)
Bipolar d/o: Continue Abilify (dose decreased by psych)/Trazodone/Lexapro
FULL/Lovenox
Medically cleared for d/c, case management aware.
Total time spent on d/c = 31 min. This included today's physical exam, progress note, review of laboratory and diagnostic data, preparation of discharge documents and prescriptions, and discussions about the pt's hospital course and discharge plan
with the patient and other medical cash poster involved in the patient's care.
--- NOTE | 2024-06-10 09:57 | W.DCSUMMARY ---
Discharge Summary
Discharge Data
Date of Admission: 06/01/24
Date of Discharge: 06/10/24
-
Pending Results: No
Hospital Course
Patient is a 58-year-old male with past medical history of acute pancreatitis who was brought from [facility] to ED following severe abdominal pain and chills starting the night before admission. Patient denied any nausea or vomiting.
Stated his pain is similar to previous episode of pancreatitis. On arrival, he was febrile. Rest of vitals were stable. Initial labs in ED showed markedly elevated lipase, mild leukocytosis, mild hyponatremia and hypocalcemia. Patient was made
n.p.o. and started on IV fluids and received morphine sulfate as needed. Chest x-ray was unremarkable. He was admitted for further evaluation.
Problem list:
1. Acute pancreatitis due to hyper TG
Lipid panel showed markedly elevated TG (>2500). According to patient's sister, he had been off his medications during his time at the [facility]. Patient was started on insulin drip (with dextrose as needed for hypoglycemia) and IVF therapy
was continued. He received calcium gluconate as needed for hypocalcemia. Lipase and triglycerides were trended during stay. GI was consulted to evaluate need for possible plasmapheresis, however, this was held due to improvement of TG with insulin
drip. He received max dose of Tricor, statin and Zetia during stay. While waiting for MRI, empiric Zosyn was started due to persistent fever and leukocytosis. Abdominal MRI showed severe peripancreatic inflammation without any overt fluid
collection or pancreatic necrosis and Zosyn was discontinued. Patient's symptoms and labs improved with insulin drip and fluid therapy. Insulin drip was discontinued and switched to basal bolus insulin for diabetes management..
2. Insulin-dependent diabetes type 2
Patient mentioned that he was on insulin pump before going to the [facility]; however, mentioned it was too expensive for him. DM CLINICAL SPECIALIST VASCULAR was consulted for management of diabetes during hospitalization as well as for management planning after
discharge. His [facility] [place] was contacted who stated he could not have insulin pump while in their facility. After discontinuing insulin drip, patient was transitioned to subcutaneous basal bolus insulin, with daily adjustments in dosage as
needed. Blood glucose was well-controlled during her stay. DM CLINICAL SPECIALIST VASCULAR recommended HS lantus 32 units and AC novolog 12 units with low corrective insulin and metformin 1000 mg BID. Patient stated he is comfortable with insulin self injections using
insulin pen.
3. Fever/SIRS
Infectious etiology workup including COVID , influenza A, urinalysis, blood culture x 2 and serologies was negative. Empiric Zosyn was discontinued after abdominal MRI also did not show any necrosis.
4. Hypovolemic hyponatremia
Patient had mild hyponatremia upon arrival. Sodium level returned to normal following IV fluid therapy.
5. Bipolar disease/Depression
Psychiatric was consulted and visited patient daily. Per their recommendation, Abilify was decreased from 20mg to 10mg. Lexapro was discontinued due to QTc prolongation and Zoloft was given as alternative. Psychiatry recommended applying for
disability after being discharged.
6. Rest of chronic conditions were managed as prior to admission.
Changes in medication include:
Tricor 145, rosuvastatin 40, Abilify 10, Zoloft 50, HS lantus to 32 units and AC novolog to 12 units with low corrective insulin
Stop Lexapro,
Discharge Plan
-
Patient Disposition: Psych Facility
Discharge Diagnosis/Procedures: Acute pancreatitis due to hypertriglyceridemia
Condition: Good
Diet: Low Fat, Low Cholesterol, Low Sodium and Diabetic, Carb Controlled
Activity: No restrictions
Driving Restrictions: As prior to admission
Bathing Restrictions: None
Referrals:
Marin Turner MD [Family Provider] - in less than 1 week
Prescriptions:
New
(DME) Contour Next Test Strips Strip
Qty: 130 0RF
Rx Instructions:
Pt Testing 4 times a day
(DME) lancets [Microlet Lancet] Misc
Qty: 130 0RF
Rx Instructions:
Pt testing 4 times a day
pantoprazole 40 mg Tablet,Delayed Release (Dr/Ec)
40 mg PO DAILY Qty: 30 0RF
aripiprazole 10 mg Tablet
10 mg PO DAILY Qty: 30 0RF
fenofibrate nanocrystallized 145 mg Tablet
145 mg PO DAILY Qty: 30 0RF
cholecalciferol (vitamin D3) 50 mcg (2,000 unit) Tablet
50 mcg PO DAILY Qty: 30 0RF
sertraline 50 mg Tablet
50 mg PO DAILY Qty: 30 0RF
insulin glargine [Basaglar KwikPen U-100 Insulin] 100 unit/mL (3 mL) Insulin Pen
32 unit SC HS Qty: 5 1RF
Fiasp FlexTouch U-100 Insulin 100 unit/mL (3 mL) Insulin Pen
12 unit SC TID Qty: 5 1RF
Rx Instructions:
Take 12 units with each meal. HOLD if not eating
(DME) pen needle, diabetic [Lucía 2nd Gen Pen Needle] 32 gauge x 5/32' Needle
Qty: 200 1RF
Rx Instructions:
As Directed with Basaglar and Fiasp pen
rosuvastatin 40 mg Tablet
40 mg PO DAILY Qty: 30 0RF
Continued
trazodone 50 mg Tablet
50 mg PO HSPRN PRN (Reason: sleep)
valacyclovir 1 gram Tablet
2,000 mg PO BIDPRN PRN (Reason: COLD SORE)
Patient Comments:
TAKE 2 PILLS TWICE DAILY FOR 5 DAYS NEEDED FOR COLD SORE
amlodipine 5 mg Tablet
5 mg PO DAILY
metformin 1,000 mg Tablet
1,000 mg PO BID
lisinopril 10 mg Tablet
10 mg PO DAILY
gabapentin 300 mg Capsule
300 mg PO TID
ezetimibe 10 mg Tablet
10 mg PO DAILY
aspirin 81 mg Capsule
81 mg PO DAILY
sennosides [senna] 8.6 mg Tablet
8.6 mg PO DAILY
metoprolol tartrate [Lopressor] 50 mg Tablet
50 mg PO BID
Discontinued
insulin lispro [Humalog U-100 Insulin] 100 unit/mL Solution
1 sliding scale dose SC AC
aripiprazole 20 mg Tablet
20 mg PO DAILY
escitalopram oxalate [Lexapro] 10 mg Tablet
10 mg PO DAILY
Rx Instructions:
take with 5mg for total of 15mg
escitalopram oxalate [Lexapro] 5 mg Tablet
5 mg PO DAILY
Rx Instructions:
take with 10mg for total of 15mg
Discharge Orders:
Discharge Patient (As Directed); Ordered 06/10/24
Ordered By: Jasmeet Castillo
Discharge Date and Time
Print Language: POLISH
== END 2024-06-10 11:25 | DRG 439 ==
LOC: 4 WEST ACU 16:25
PROVIDERS: Hospitalist; Nurse Practitioner Family; Student in an Organized Health Care Education/Training Program; ADMITTING PHYSICIAN Hospitalist; ATTENDING PHYSICIAN Internal Medicine; CONSULT PHYSICIAN Internal Medicine Gastroenterology; CONSULT PHYSICIAN Psychiatry & Neurology Psychiatry; EMERGENCY PHYSICIAN Emergency Medicine; FAMILY PHYSICIAN Family Medicine
DX: K85.80 Other acute pancreatitis without necrosis or infection (principal); E87.1 Hypo-osmolality and hyponatremia; R65.10 Systemic inflammatory response syndrome (SIRS) of non-infectious origin without acute organ dysfunction; R45.851 Suicidal ideations; J90 Pleural effusion, not elsewhere classified; J98.11 Atelectasis; K56.7 Ileus, unspecified; I10 Essential (primary) hypertension; E78.00 Pure hypercholesterolemia, unspecified; E78.1 Pure hyperglyceridemia; E11.65 Type 2 diabetes mellitus with hyperglycemia; F31.9 Bipolar disorder, unspecified; F41.9 Anxiety disorder, unspecified; Z11.52 Encounter for screening for COVID-19; E86.1 Hypovolemia; E83.51 Hypocalcemia; E66.9 Obesity, unspecified; Z68.28 Body mass index [BMI] 28.0-28.9, adult; E87.6 Hypokalemia; Z79.4 Long term (current) use of insulin; K59.00 Constipation, unspecified; Z79.82 Long term (current) use of aspirin
CPT/HCPCS: 71046; 74019; 74183; 80048; 80053; 80061; 81003; 81015; 82150; 82248; 82306; 82607; 82728; 82962; 83036; 83540; 83550; 83690; 83721; 83735; 84100; 84145; 84478; 85018; 85025; 85027; 86140; 87040; 87502; 87811; 93005; 96361; 96374; 97162; 97530; 99285; A9585